=== PATIENT | male | born 1960 | race Caucasian/White ===

== ENCOUNTER 2018-07-21 17:36 | Inpatient (IN) | payer OTHER ==
[2018-07-21] MEDS ORDERED: Diltiazem IV push/loading dose 5 MG/ML 5 ML vial (25 mg) ONE (17:55)
[2018-07-21] MEDS ORDERED: Diltiazem IV push/loading dose 5 MG/ML 5 ML vial (25 mg) IV PUSH ONE (18:09)
--- NOTE | 2018-07-21 18:14 | ED ---
Palpitations / Dysrhythmia - HPI Summary HPI Summary: Pt is a 58 y/o M with no significant PMH,although he doesn't seek regular medical care, presents to the ED with a chief complaint of weakness since this am. He reports these sx first onset last week on 07/14/18, including fatigue, weakness, racing HR, SOB, and nausea. He went to [facility] who found him in rapid afib and referred him to the ED for further evaluation and treatment. He denies chest pain. He presented by private car. Pt was seen immediately upon arrival when noted with HR's 180-200. IV cardizem 20mg given, and drip at 10mg/ hr of cardizem was started with slowing of his HR to 138. Pt remained asymptomatic, except for fatigue and SOB. - History of Current Complaint Chief Complaint: EDWeakness Hx Obtained From: Patient, Other: - Well Now UC Onset/Duration: Sudden Onset, Lasting Hours, Still Present Timing: Intermittent Episodes Lasting: - minutes at a time Severity Initially: Moderate Severity Currently: Moderate Character: Fast Aggravating: Nothing Alleviating: Nothing Associated Signs & Symptoms: Dizzy, Shortness of Breath, Diaphoresis, Nausea - Allergy/Home Medications Allergies/Adverse Reactions: Allergies Allergy/AdvReac Type Severity Reaction Status Date / Time nickel Allergy Hives Verified 07/21/18 18:00 PMH/Surg Hx/FS Hx/Imm Hx Previously Healthy: Yes Endocrine/Hematology History: Denies: Hx Diabetes Cardiovascular History: Denies: Hx Hypertension - Surgical History Surgical History: None Infectious Disease History: No Infectious Disease History: Denies: Traveled Outside the [place] in Last 30 Days - Family History Known Family History: Positive: Other - mother with lung CA Negative: Hypertension, Diabetes - Social History Alcohol Use: Occasionally Alcohol Amount: 3-4 beers- variable Hx Substance Use: No Substance Use Type: Reports: None Hx Tobacco Use: Yes Smoking Status (MU): Light Every Day Tobacco Smoker Review of Systems Positive: Fatigue, Skin Diaphoresis Positive: Palpitations. Negative: Chest Pain Positive: Shortness Of Breath Positive: Nausea Positive: no symptoms reported Musculoskeletal: Negative Skin: Negative Neurological: Negative - dizziness Positive: Weakness Psychological: Normal All Other Systems Reviewed And Are Negative: Yes Physical Exam Triage Information Reviewed: Yes Vital Signs On Initial Exam: Initial Vitals Temp Pulse Resp BP Pulse Ox 97.5 F 93 16 149/104 100 07/21/18 17:42 07/21/18 17:42 07/21/18 17:42 07/21/18 17:42 07/21/18 17:42 Vital Signs Reviewed: Yes Appearance: Positive: No Pain Distress, Well-Nourished, Ill-Appearing Skin: Positive: Warm, Skin Color Reflects Adequate Perfusion, Dry Head/Face: Positive: Normal Head/Face Inspection Eyes: Positive: EOMI, Conjunctiva Clear ENT: Positive: Normal ENT inspection Neck: Positive: Supple, Other: - no JVD Respiratory/Lung Sounds: Positive: Clear to Auscultation, Breath Sounds Present Cardiovascular: Positive: IRR - afib with RVR on monitor and EKG, Tachycardia Abdomen Description: Positive: Nontender, Soft Bowel Sounds: Positive: Present Musculoskeletal: Positive: Strength/ROM Intact, Other - no edema, no calf tenderness Neurological: Positive: Sensory/Motor Intact, Alert, Oriented to Person Place, Time, Facial Symmetry, Speech Normal Psychiatric: Positive: Affect/Mood Appropriate Diagnostics - Vital Signs Vital Signs Temp Pulse Resp BP Pulse Ox 07/21/18 17:42 97.5 F 93 16 149/104 100 - Laboratory Result Diagrams: 07/24/18 06:30 07/25/18 05:20 Lab Statement: Any lab studies that have been ordered have been reviewed, and results considered in the medical decision making process. - Radiology CXR Radiology Interpretation Completed By: ED Physician Summary of Radiographic Findings: Cardiomegaly. Vascular congestion. Pending official radiology report. - EKG 1753 Cardiac Rate: Other Rate - 154bpm EKG Rhythm: Atrial Fibrillation ST Segment: Non-Specific Ectopy: None EKG Comparison: Other - no prior to compare Summary of EKG Findings: An EKG at 1753 reveals atrial fibrillation at 154bpm with nml IV CT, nml QTc, and poor R-wave progression with nonspecific ST-T wave changes. No acute changes. ED MD has reviewed and interpreted this EKG. Re-Evaluation - Re-Evaluation First Eval Re-Evaluation Time: 18:40 Change: Improved Comment: Pt remains without CP. Heart rhythm remains afib, although slowed by cardizem bolus of 10mg to 130's. Cardizem drip initiated at 10mg/hr. Pt agrees to admission. Course/Dx - Course Course Of Treatment: Pt is a 58 y/o M, otherwise well, who does not see a PCP, presents to the ED with a chief complaint of weakness. He reports these sx first onset last week on 07/14/18, including fatigue, dizziness, weakness, racing HR, SOB, and nausea. He went to [facility] who noted rapid afib and referred for further evaluation. Pt arrived by private car, ambulated to triage room, was found with HR 180's-200's, and pt was brought immediately to a room, with all emergency equipment in place. Pt given 20mg cardizem bolus with decrease in rate of afib, and cardizem drip was initiated. Pt had only SOB and fatigue, no chest pain. An EKG at 1753 reveals atrial fibrillation at 154bpm with nml IV CT, nml QTc, and poor R-wave progression with nonspecific ST-T wave changes. No acute changes. There are no prior EKG's for comparison. ED MD has reviewed and interpreted this EKG. Pts hematology shows WBC of 12.6, RBC of 3.61, Hgb of 12.2, Hct of 36, MCV of 100, and MCH of 34. His INR is 1.57. His chemistry shows a CO2 level of 15, Anion gap of 13, BUN of 45, Creatinine of 1.91, BUN/Creatinine ratio of 23.6, AST of 187, and ALT of 248, troponin of 1.59. CXR shows cardiomegaly with vascular congestion, pending official radiology report. He has been accepted to [facility] with dx of atrial fibrillation with RVR new onset under Dr. Jesus as of 1845. - Diagnoses Differential Diagnosis/HQI/PQRI: Positive: Cardiomyopathy, Congestive Heart Failure, Coronary Artery Disease, Pulmonary Embolism Provider Diagnoses: Atrial fibrillation with RVR, AURA (acute kidney injury), Transaminitis, Elevated troponin level - Critical Care Time Critical Care Time: 30-74 min - 30 mins Discharge - Sign-Out/Discharge Documenting (check all that apply): Patient Departure - Discharge Plan Condition: Good Disposition: ADMITTED TO [facility] - Billing Disposition and Condition Condition: GOOD Disposition: Admitted to [facility] - Attestation Statements Document Initiated by Scribe: Yes Documenting Scribe: Lisbeth Diehl Provider For Whom Scribe is Documenting (Include Credential): Dr. Sarah Denise MD. Scribe Attestation: I, Lisbeth Diehl, scribed for Dr. Sarah Denise MD. on 07/29/18 at 0146. Scribe Documentation Reviewed: Yes Provider Attestation: The documentation as recorded by the joseibe, Lisbeth Diehl accurately reflects the service I personally performed and the decisions made by me, Dr. Sarah Denise MD. Status of Scribe Document: Viewed Consult Consult: [id number] - I spoke with Dr Jesus who will be accepting the pt to [facility] with a dx of atrial fibrillation with RVR, new onset.
[2018-07-21 18:21] LABS: ABS Lymphocytes 1.2 10^3/ul (1.0-4.8); ABS Monocytes 0.6 10^3/ul (0-0.8); ABS Neutrophils 10.8 10^3/ul (1.5-7.7); Hematocrit 36 % (42-52); Hemoglobin 12.2 g/dL (14.0-18.0); Lymphocyte % 9.5 %; Mean Corpuscular HGB Conc 34 g/dL (31-36); Mean Corpuscular Hemoglobin 34 pg (27-31); Mean Corpuscular Volume 100 fL (80-94); Nucleated Red Blood Cells % 0.1; Platelet Count 157 10^3/uL (150-450); Red Blood Count 3.61 10^6 /uL (4.18-5.48); Red Cell Distribution Width 14 % (10.5-15); White Blood Count 12.6 10^3/uL (3.5-10.8)
[2018-07-21 18:31] LABS: INR 1.57 (0.82-1.09)
[2018-07-21 18:40] LABS: ALT 248 U/L (7-52); AST 187 U/L (13-39); Albumin 3.8 g/dL (3.2-5.2); Albumin/Globulin Ratio 1.3 (1-3); Alkaline Phosphatase 88 U/L (34-104); Anion Gap 13 mmol/L (2-11); BUN/Creatinine Ratio 23.6 (8-20); Blood Urea Nitrogen 45 mg/dL (6-24); CO2 Carbon Dioxide 15 mmol/L (22-32); Chloride 110 mmol/L (101-111); EGFR African American 44.3 (>60); EGFR Non-African American 36.6 (>60); Glucose 142 mg/dL (70-100); Potassium 4.4 mmol/L (3.5-5.0); Sodium 138 mmol/L (135-145); Total Protein 6.8 g/dL (6.4-8.9)
[2018-07-21] MEDS: Diltiazem IV VIAL* 125 MG in NS 0.9% 100 ML* 100 ML IVPB ONE ×2 (18:42→18:58)
[2018-07-21 19:03] LABS: Troponin I 1.59 ng/mL (<0.04)
[2018-07-21 19:16] LABS: Creatine Kinase 93 U/L (10-223); Magnesium 1.6 mg/dL (1.9-2.7)
[2018-07-21 19:20] LABS: CKMB ng/mL 18.8 ng/mL (0.6-6.3)
[2018-07-21 19:27] LABS: T4, Total 7.66 mcg/dL (6.09-12.23)
[2018-07-21 19:31] LABS: TSH (Thyroid Stimulating Horm) 2.88 mcIU/mL (0.34-5.60)
[2018-07-21] MEDS ORDERED: Magnesium Sulfate IV* 3 GM in NS 0.9% 100 ML* 100 ML IVPB ONE (19:31)
[2018-07-21] MEDS ORDERED: Furosemide IV* 10 MG/ML 10 ML VIAL (100 MG) IV ONE (19:45)
[2018-07-21] MEDS ORDERED: Nitro 2% OINT* (Nitroglycerin) 1 INCH/PAK PAK TOPICAL ONE (19:45)
[2018-07-21] MEDS ORDERED: Acetaminophen TAB* 325 MG PO PRN (19:46)
[2018-07-21] MEDS ORDERED: Aspirin 81 mg CHEW TAB* 81 MG TAB.CHEW PO ONE (19:49)
[2018-07-21] MEDS ORDERED: Ondansetron INJ* 2 MG/ML VIAL IV PRN (19:56)
[2018-07-21] MEDS ORDERED: Senna TAB PO PRN (19:56)
[2018-07-21] MEDS ORDERED: Al Hydrox/Mg Hydrox/Simet LIQ* 30 ML UDC PO PRN (19:56)
[2018-07-21] MEDS ORDERED: Docusate CAP* 100 MG PO PRN (19:56)
[2018-07-21] MEDS ORDERED: LORazepam INJ* 2 MG/ML 1 ML VIAL IV PUSH SCH (20:00)
[2018-07-21] MEDS ORDERED: Heparin DRIP 25,000 UNITS(*) 25,000 UNITS/500 ML BAG IV SCH (20:00)
[2018-07-21 20:19] LABS: Alcohol < 10 mg/dL (<10)
[2018-07-21 20:36] LABS: Folate > 20.00 ng/mL (>3.99)
[2018-07-21] MEDS ORDERED: Lorazepam PYXIS KEY PRN (20:36)
[2018-07-21] MEDS: Nicotine PATCH 14 MG/24 HR* PATCH TRANSDERM SCH (21:30)
[2018-07-21] MEDS: Heparin VIAL(*) 5000 UNITS/ML VIAL (FIVE THOUSAND) IV PRN (21:30)
[2018-07-21 21:33] LABS: Hepatitis B Surface Antigen Negative (Negative)
[2018-07-21 21:38] LABS: Troponin I 1.89 ng/mL (<0.04)
[2018-07-21] MEDS ORDERED: Digoxin IV* 0.5 MG/2 ML AMP (0.25 MG/ML) IV SLOW PU ONE (21:41)
--- NOTE | 2018-07-21 21:43 | HP ---
HISTORY AND PHYSICAL: DATE OF ADMISSION: 07/21/18 TIME OF EVALUATION: 1929 PRIMARY CARE PHYSICIAN: The patient does not have a primary care physician. CHIEF COMPLAINT: Shortness of breath. HISTORY OF PRESENT ILLNESS: This is a 58-year-old male with an unremarkable past medical history, though he does not follow up with a primary care physician , who is complaining about a week of shortness of breath. He was concerned because he was not getting better. He got up and had no energy today, so he went to [facility]. At [facility], they did an EKG that showed him in rapid AFib and they sent him to the emergency room for further evaluation. The patient states he was otherwise feeling well, has no recent viral illness. No fevers, no cough. He denies any chest pain. No neck pain. No back pain. He states last week, he was [place] at a concert. He could not through it because he was so short of breath. Denies any changes in his weight. No lower extremity swelling. He denies any nausea, vomiting, diarrhea, no abdominal pain. He states too during this time, he will have episodes of what he felt palpitations and he will start sweating, but no associated chest pain. Denies any urinary symptoms, but has noticed it has been more dark over the past few days. He has taken Advil a few times over the course of the past few days. Otherwise, remaining review of systems negative. In the emergency room, the patient had labs and imaging, he was found to be in rapid AFib. He was given a diltiazem bolus and started on a drip at 10 mg an hour. Currently, chest pain free. He states he feels fine currently. PAST MEDICAL HISTORY: Unremarkable. The patient does not see a primary care physician. MEDICATIONS: None. ALLERGIES: Allergies to NICKEL. FAMILY HISTORY: Mother at age 65 from lung cancer. Father unknown cause of . Brother is alive and healthy. SOCIAL HISTORY: Lives at home with his , who is his healthcare proxy. 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 He is very active. He admits to smoking half pack per day x30 years. He drinks about 3 to 4 drinks nearly daily, but states not every day. No illicit drug use. Code status, full code. REVIEW OF SYSTEMS: A 14-point review of systems as mentioned in the HPI, otherwise negative. PHYSICAL EXAMINATION GENERAL: In no acute distress. Resting comfortably in bed with his at the bedside. VITAL SIGNS: Temp is 97.5, pulse rate is 130, respiratory rate 23, oxygen saturation 97% on room air, blood pressure 131/107. HEENT: Head: Normocephalic. Pupils are equal and reactive and anicteric. Oropharynx: Mucous membranes are moist. NECK: Supple. No lymphadenopathy. RESPIRATORY: Diminished breath sounds, bibasilar rales. No increased work of breathing. CARDIAC: Tachycardia, irregular rate and rhythm. Soft systolic murmur heard throughout. ABDOMEN: Morbidly obese, soft, nontender, nondistended. EXTREMITIES: Trace pedal edema. +2 DPs. NEUROLOGIC: Alert and oriented x3. No gross focal neurologic deficits. DIAGNOSTIC STUDIES/LAB DATA: White count 12.6, hemoglobin 12.2, hematocrit 36 , platelets 157. INR is 1.57. Sodium 138, potassium 4.4, chloride 110, bicarb 15, BUN 45, creatinine 1.91, glucose 142, magnesium 1.6. AST 187, ALT is 48. Troponin is 1.59. CK-MB is 18.8. BNP is 813. TSH is 2.88. Radiographic data shows rapid atrial fibrillation of a rate of [address] depression in lateral leads. Chest x-ray shows findings consistent with congestive heart failure. ASSESSMENT AND PLAN: This is a 58-year-old male who has not been followed by a primary care physician on a routine basis, who presents to the emergency room with a week of shortness of breath and palpitations, found to be in rapid atrial fibrillation. 1. Rapid atrial fibrillation. Assessment: Etiology behind his rapid atrial fibrillation could be related to his alcohol and smoking use, also concern for ischemia with an elevated troponin. . The patient does not have any chest pain. He does have ST depression. He also has a component of acute decompensated heart failure likely driven by his rapid atrial fibrillation. Also possibility is a pulmonary embolism. Plan: We will admit the patient to the ICU. We will continue him on the diltiazem drip. We will give him a dose of Lasix, Nitro paste, give him a full aspirin, trend his troponin, check a lipid panel, check a hemoglobin A1c, and start him on heparin drip. We will do a protocol for a pulmonary embolus until pulmonary embolus can be ruled out and order a V/Q scan in the morning in the setting of his renal failure. We will obtain an echocardiogram. We will keep him NPO after midnight. Spoke with Dr. Jc. Cardiology will see him in the morning. They may want to cardiovert him as well. 2. Acute kidney injury. I suspect this in the setting of his acute decompensated heart failure. He did take a few doses of Advil. Plan: We will renally dose his medications. We will check a FENa and monitor his renal function in the morning. 3. Transaminitis. The patient with elevated LFTs. Also likely related to acute decompensated heart failure. Plan: We will repeat his labs in the morning and check an acute hepatitis panel. 4. Low salt diet and NPO after midnight for possible EMELINA with cardioversion. 5. DVT prophylaxis. The patient scores moderate risk. We will place him on heparin drip. 6. Code status: Full code. PATIENT TIME: Greater than 50 minutes was spent doing the history and physical , more than half the time was direct patient contact and critical care time. [id number]/[facility] #: [id number] TOMASZ
[2018-07-21 21:50] LABS: Hepatitis C Antibody Negative (Negative)
[2018-07-22 00:03] LABS: Urine Appearance Cloudy; Urine Bilirubin Negative (Negative); Urine Blood Negative (Negative); Urine Color Straw; Urine Glucose Negative (Negative); Urine Ketones Negative (Negative); Urine Nitrite Negative (Negative); Urine Protein Negative (Negative); Urine Specific Gravity 1.006 (1.010-1.030); Urine Urobilinogen Negative (Negative)
[2018-07-22 00:20] LABS: Urine Creatinine Concentration 28.16 mg/dL
[2018-07-22 00:27] LABS: Troponin I 1.74 ng/mL (<0.04)
[2018-07-22] MEDS ORDERED: Metoprolol Tartrate IV* 1 MG/ML 5 ML VIAL IV ONE (00:31)
[2018-07-22] MEDS: Diltiazem IV VIAL* 125 MG in NS 0.9% 100 ML* 100 ML IVPB SCH ×2 (03:12→14:46)
[2018-07-22 04:51] LABS: ABS Basophils 0.1 10^3/ul (0-0.2); ABS Eosinophils 0.1 10^3/ul (0-0.6); ABS Lymphocytes 2.9 10^3/ul (1.0-4.8); ABS Monocytes 0.4 10^3/ul (0-0.8); ABS Neutrophils 5.9 10^3/ul (1.5-7.7); Eosinophil % 0.7 %; Hematocrit 34 % (42-52); Hemoglobin 11.5 g/dL (14.0-18.0); Lymphocyte % 31.2 %; Mean Corpuscular HGB Conc 34 g/dL (31-36); Mean Corpuscular Hemoglobin 34 pg (27-31); Mean Corpuscular Volume 101 fL (80-94); Mean Platelet Volume 9.5 fL (7.4-10.4); Platelet Count 150 10^3/uL (150-450); Red Blood Count 3.36 10^6 /uL (4.18-5.48); Red Cell Distribution Width 14 % (10.5-15); White Blood Count 9.3 10^3/uL (3.5-10.8)
[2018-07-22 04:58] LABS: INR 1.5 (0.82-1.09)
[2018-07-22 05:06] LABS: Albumin 3.6 g/dL (3.2-5.2); Albumin/Globulin Ratio 1.2 (1-3); EGFR African American 58.6 (>60); EGFR Non-African American 48.4 (>60); Globulin 2.9 g/dL (2-4); HDL Cholesterol 27.5 mg/dL; Potassium 3.7 mmol/L (3.5-5.0); Total Bilirubin 0.6 mg/dL (0.2-1.0); Total Protein 6.5 g/dL (6.4-8.9)
[2018-07-22] MEDS ORDERED: Nicotine Patch Removal NOTE PATCH OFF ONE (06:00)
[2018-07-22] MEDS ORDERED: Perflutren Lipid Microsphere* 3 ML VIAL ONE (08:31)
[2018-07-22] MEDS ORDERED: Furosemide IV* 10 MG/ML VIAL (40 MG) IV SCH (09:00)
[2018-07-22] MEDS: Multivitamins/Minerals TAB PO SCH (09:20)
[2018-07-22] MEDS: Nicotine PATCH 14 MG/24 HR* PATCH TRANSDERM SCH (09:21)
[2018-07-22] MEDS: Potassium Chlor TAB* 20 MEQ TAB.ER PO SCH (09:21)
[2018-07-22] MEDS: Folic Acid TAB* 1 MG PO SCH (09:21)
[2018-07-22] MEDS: Thiamine TAB* 100 MG TAB PO SCH (09:21)
[2018-07-22] MEDS: Aspirin 81 mg CHEW TAB* 81 MG TAB.CHEW PO SCH (09:21)
--- NOTE | 2018-07-22 10:40 | ECHO ---
*[facility]* [place] [address] Fax #: [phone] Transthoracic Echocardiogram Patient: Torrie Height: 72 in / Don Bose 182.9 cm : 1960 Weight: 259.5 lb / Study Date: 07/22/2018 117.9 kg Age: 58 BP: 126 / 104 Gender: M BMI/BSA: 35.3 kg/m^2 HR: 134 bpm / 2.38 m^2 *Dry Wall Installer: * Shaila Womack RDCS RN *Referring Physician: * Lisbeth Crowley *Reading Physician: * Kasandra Barnard MD Indications: Congestive Heart Failure. History: Risk factors: Former tobacco use. Obese. ETOH use. Conclusions Summary: 1. Left ventricle: The cavity size is mildly dilated. Wall thickness is mildly increased. Systolic function is severely reduced. The estimated ejection fraction is 15-20%. Doppler parameters are consistent with restrictive physiology, indicative of decreased left ventricular diastolic compliance and/or increased left atrial pressure. 2. Right ventricle: Systolic function is moderately reduced. 3. Left atrium: The atrium is severely dilated. 4. Mitral valve: There is mild regurgitation, directed anteriorly and toward the free wall. 5. Tricuspid valve: There is trace to mild regurgitation. 6. Pulmonary arteries: The peak pressure during systole by Doppler is 31.0 mm Hg. 7. No prior echocardiogram to compare. Study data: Transthoracic echocardiogram. Procedure: Transthoracic echocardiography was performed. The study was technically limited due to body habitus and smoking history. A total of 4 ml of Definity was given IV. Image enhancement administered by Dayna Ovalles RN. Complete 2D, spectral Doppler, and color flow Doppler. Patient status: Inpatient. Patient room number: ICU 8. Rhythm: Atrial flutter. Findings Left ventricle: The cavity size is mildly dilated. Wall thickness is mildly increased. Systolic function is severely reduced. The estimated ejection fraction is 15-20%. Severe diffuse hypokinesis. Doppler parameters are consistent with restrictive physiology, indicative of decreased left ventricular diastolic compliance and/or increased left atrial pressure. Right ventricle: The cavity size is mildly dilated. Systolic function is moderately reduced. Left atrium: The atrium is severely dilated. Right atrium: The atrium is moderately dilated. Mitral valve: The leaflets are mildly thickened. There is no evidence of stenosis. There is mild regurgitation, directed anteriorly and toward the free wall. Aortic valve: The valve is trileaflet. The leaflets are mildly thickened. There is no evidence of stenosis. There is no regurgitation. Tricuspid valve: The leaflets are normal thickness. There is no evidence of stenosis. There is trace to mild regurgitation. Pulmonic valve: The leaflets are normal thickness. There is no evidence of stenosis. There is trace regurgitation. Aorta: Aortic root: The aortic root is not dilated. Ascending aorta: The ascending aorta is not dilated. Aortic arch: The aortic arch is not dilated. Pericardium: There is no pericardial effusion. Pulmonary arteries: The main pulmonary artery is normal-sized. Systemic veins: Inferior vena cava: The vessel is dilated. The respirophasic diameter changes are blunted (< 50%). Measurements Left ventricle Value Ref Aortic valve Value Ref EMILY, LAX (H) 5.9 cm 4.2 - Choco diam, ED 2.3 cm ----- 5.8 Peak v, S 0.79 m/sec ----- ESD, LAX (H) 5.7 cm 2.5 - VTI, S 10.3 cm ----- 4.0 Mean grad, S 1.0 mm Hg ----- FS, LAX (L) 4 % 25 - 43 Peak grad, S 2.0 mm Hg ----- PW, ED, LAX (H) 1.2 cm 0.6 - LVOT/AV, VTI ratio 0.98 ----- 1.0 IVS/PW, ED 0.98 -------- Mitral valve Value Ref E', lat choco, TDI (L) 8.4 cm/sec >=10.0 Peak E 1.11 m/sec --- -- E/e', lat choco, TDI 13 -------- Decel time 109 ms ----- E', med choco, TDI (L) 5.8 cm/sec >=7.0 Peak grad, D 4.9 mm Hg --- -- E/e', med choco, TDI 19 -------- E', avg, TDI 7.1 cm/sec -------- Pulmonic valve Value Ref E/e', avg, TDI (H) 16 <=14 Peak v, S 0.77 m/sec --- -- Peak grad, S 2.0 mm Hg ----- LVOT Value Ref Peak margarito, S 0.74 m/sec -------- Tricuspid valve Value Ref VTI, S 10.1 cm -------- TR peak v 2.1 m/sec <=2.8 Mean grad, S 1 mm Hg -------- Peak RV-RA grad, S 18 mm Hg ----- Ventricular septum Value Ref Aortic root Value Ref IVS, ED (H) 1.1 cm 0.6 - Root diam 3.0 cm <4.4 1.0 Ascending aorta Value Ref Right ventricle Value Ref AAo AP diam, S 3.3 cm ----- EMILY, LAX 2.9 cm -------- EMILY minor ax, A4C (H) 4.2 cm 1.9 - Aortic arch Value Ref mid 3.5 Arch diam 2.9 cm ----- Pressure, S 33 mm Hg -------- Decending aorta Value Ref Left atrium Value Ref Sheila peak margarito 0.48 m/sec ----- ML dim, A4C 6.0 cm -------- SI dim, A4C 7.1 cm -------- Pulmonary artery Value Ref Vol/bsa, ES, 1-p (H) 59 ml/m^2 12 - 37 Pressure, S 31.0 mm Hg ----- A4C Vol/bsa, ES, A/L (H) 59 ml/m^2 16 - 34 Inferior vena cava Value Ref Diam 2.5 cm ----- Right atrium Value Ref ML dim, ES, A4C (H) 5.6 cm 2.6 - 4.4 SI dim, ES, A4C (H) 6.4 cm 3.4 - 5.3 Estimated RAP 15 mm Hg -------- Legend: (L) and (H) stella values outside specified reference range. Prepared and electronically signed by Kasandra Barnard MD 07/22/2018 10:40
[2018-07-22] MEDS ORDERED: Naloxone* 0.4 MG/ML 1 ML VIAL ONE (13:01)
[2018-07-22] MEDS ORDERED: Flumazenil* 0.1 MG/ML 5 ML MDV ONE (13:01)
[2018-07-22] MEDS ORDERED: Midazolam* 1 MG/ML 5 ML VIAL (5 MG) ONE (13:01)
[2018-07-22] MEDS ORDERED: fentaNYL* 50 MCG/ML 2 ML VIAL (100 MCG VIAL) ONE (13:01)
[2018-07-22] MEDS ORDERED: Lidocaine 2% VISCOUS* 15 ML UDC ONE (13:02)
[2018-07-22] MEDS ORDERED: Diltiazem IV VIAL* 125 MG in NS 0.9% 100 ML* 100 ML IVPB SCH (14:00)
--- NOTE | 2018-07-22 15:04 | TEE ---
*[facility]* [place] [address] Fax #: [phone] Transesophageal Echocardiogram Patient: Torrie Height: 72 in / 183 Don Bose cm : 1960 Weight: 261.8 lb / Study Date: 07/22/2018 119 kg Age: 58 BP: 131 / 108 Gender: M BMI/BSA: 35.5 kg/m^2 HR: 135 bpm / 2.5 m^2 *Live Ammunition Inspector: * Irene Jay [facility] *Referring Physician: * Kasandra Barnard MD *Reading Physician: * Kasandra Barnard MD Indications: Atrial Flutter. History: Risk factors: Former tobacco use. Conclusions Summary: 1. Left ventricle: Systolic function is severely reduced. The estimated ejection fraction is 15-20%. Global hypokinesis, minor variation. 2. Right ventricle: Systolic function is moderately reduced. 3. Left atrium: The atrium is severely dilated. There is no evidence of a thrombus in the atrial cavity or appendage. There is spontaneous echo contrast ("smoke"). 4. Atrial septum: A PFO is demonstrated by color Doppler, with left to right shunting. 5. Mitral valve: There is mild regurgitation. Recommendations: Cardioversion performed, see seperate report. Study data: Diagnostic Transesophageal Echocardiogram Consent: The risks and benefits of the procedure, including alternatives were discussed with the patient and/or their health care premium representative and written informed consent was obtained. Procedure: Initial setup: The patient was brought to the laboratory in the fasting state.Intravenous access was obtained. Surface ECG leads, heart rate, heart rhythm, blood pressure measurements, pulse oximetric signals, and mainstream end-tidal CO2 tracings were monitored throughout the procedure. Sedation. Moderate sedation was administered by nursing staff. History and physical as well as labs were reviewed. An oral bite block was inserted for protection of oral dentition. The patient was placed in the left lateral decubitus position. Topical anesthesia was obtained using viscous lidocaine. A transesophageal probe was inserted by the attending funds development director. Transesophageal echocardiography was performed, image quality was good, and all standard views were attempted within the limitations of patient tolerance and safety. Multiple 2D, color flow Doppler and spectral Doppler images were obtained. The transesophageal probe was removed. A bubble study was performed. Image 46. Location: ICU Patient status: Inpatient. Patient room number: 8. Study completion: The patient tolerated the procedure well. There were no complications. Administered medications: Midazolam, 8mg. Fentanyl, 75mcg. Rhythm: Atrial flutter. Findings Left ventricle: The cavity size is mildly dilated. Systolic function is severely reduced. The estimated ejection fraction is 15-20%. Global hypokinesis, minor variation. Right ventricle: The cavity size is mildly dilated. Systolic function is moderately reduced. Left atrium: The atrium is severely dilated. Emptying velocity is normal. There is no evidence of a thrombus in the atrial cavity or appendage. There is spontaneous echo contrast ("smoke"). Right atrium: The atrium is moderately dilated. Atrial septum: A PFO is demonstrated by color Doppler, with left to right shunting. Mitral valve: The leaflets are normal thickness. There is no evidence of stenosis. There is mild regurgitation. Aortic valve: The valve is trileaflet. The leaflets are normal thickness. There is no evidence of stenosis. There is no significant regurgitation. Tricuspid valve: The leaflets are normal thickness. There is no evidence of stenosis. There is trivial regurgitation. Pulmonic valve: Not well visualized. The leaflets are not thickened. There is no significant regurgitation. Aorta: Aortic root: The aortic root is appears normal. Ascending aorta: The ascending aorta is upper normal in size. Pericardium: There is no significant pericardial effusion. Pulmonary arteries: The main pulmonary artery is normal-sized. Systemic veins: Inferior vena cava: The vessel is normal in size. Superior vena cava: The vessel is appears normal. Pulmonary veins: The flow of the pulmonary veins appears normal. Measurements Aortic valve Value 07/22/2018 Ref Aortic root Value 07/22/2018 Ref Twyla diam, ED 2.3 cm 2.3 ---- Root diam 3.0 cm 3.0 <4.5 Mitral valve Value 07/22/2018 Ref Ascending aorta Value 07/22/2018 Ref Peak E 0.81 m/sec 1.11 ---- AAo AP diam, S 3.5 cm 3.3 ---- Peak A 0.02 m/sec ---- Decel time 49 ms 109 ---- Peak grad, D 2.6 mm Hg 4.9 ---- Peak E/A ratio 38.6 ---- Legend: (L) and (H) stella values outside specified reference range. Prepared and electronically signed by Kasandra Barnard MD 07/22/2018 15:03
[2018-07-22] MEDS: Heparin DRIP 25,000 UNITS(*) 25,000 UNITS/500 ML BAG IV SCH (15:43)
--- NOTE | 2018-07-22 16:09 | PN ---
Subjective Date of Service: 07/22/18 Interval History: HOSPITALIST PROGRESS NOTE Patient seen and examined at bedside. Care reviewed and d/w Irene Peterson RN. He feels a little better today. Denies CP and dyspnea, but did not get out of bed yet. Family History: Unchanged from Admission Social History: Unchanged from Admission Past Medical History: Unchanged from Admission Objective Active Medications: Acetaminophen (Tylenol Tab*) 650 mg PO Q4H PRN PRN Reason: PAIN Al Hydrox/Mg Hydrox/Simethicone (Maalox Plus*) 30 ml PO Q6H PRN PRN Reason: INDIGESTION Aspirin (Aspirin 81 Mg Chew Tab*) 81 mg PO DAILY [facility] Last Admin: 07/22/18 09:21 Dose: 81 mg Carvedilol (Coreg Tab*) 3.125 mg PO BID [facility] Docusate Sodium (Colace Cap*) 100 mg PO BID PRN PRN Reason: CONSTIPATION Folic Acid (Folvite Tab*) 1 mg PO DAILY [facility] Last Admin: 07/22/18 09:21 Dose: 1 mg Heparin Sodium (Porcine) (Heparin Vial(*)) 0 units IV .FOR BOLUSES PRN PRN Reason: HEPARIN DRIP BOLUSES Last Admin: 07/21/18 21:30 Dose: 7,050 units Heparin Sodium/Dextrose (Heparin Drip 25,000 Units(*)) 25,000 units in 500 mls @ 0 mls/hr IV PER RATE [facility]; Protocol Last Admin: 07/22/18 15:43 Dose: 24 mls/hr Lorazepam (Ativan Inj*) 0 - 3 mg IV PUSH .PER [facility] PROTOCOL [facility]; Protocol Miscellaneous (Ativan Pyxis Guzman) 1 ea N/A .PYXIS GUZMAN PRN PRN Reason: PER PROTOCOL Multivitamins/Minerals (Theragran/Minerals Tab*) 1 tab PO DAILY [facility] Last Admin: 07/22/18 09:20 Dose: 1 tab Nicotine (Nicotine Patch 14 Mg/24 Hr*) 1 patch TRANSDERM DAILY [facility] Last Admin: 07/22/18 09:21 Dose: Not Given Ondansetron HCl (Zofran Inj*) 4 mg IV Q4H PRN PRN Reason: NAUSEA/VOMITING Pharmacy Profile Note (Nicotine Patch Removal Note*) 1 note PATCH OFF 2100 [facility] Potassium Chloride (Klor Con Er Tab*) 20 meq PO DAILY [facility] Last Admin: 07/22/18 09:21 Dose: 20 meq Ramipril (Altace Cap*) 2.5 mg PO BEDTIME [facility] Senna (Senokot Tab*) 1 tab PO BID PRN PRN Reason: CONSTIPATION Thiamine HCl (Vitamin B-1 Tab*) 100 mg PO DAILY [facility] Last Admin: 07/22/18 09:21 Dose: 100 mg Vital Signs - 8 hr 07/22/18 07/22/18 07/22/18 09:00 09:01 09:36 Temperature Pulse Rate 132 136 134 Respiratory 26 19 24 Rate Blood Pressure 136/105 141/105 (mmHg) O2 Sat by Pulse 98 97 97 Oximetry 07/22/18 07/22/18 07/22/18 10:00 11:21 12:00 Temperature 98 F Pulse Rate 133 137 137 Respiratory 27 21 Rate Blood Pressure 133/104 (mmHg) O2 Sat by Pulse 95 97 97 Oximetry 07/22/18 07/22/18 07/22/18 12:32 13:00 13:42 Temperature Pulse Rate 137 138 139 Respiratory 21 Rate Blood Pressure 144/114 131/108 149/115 (mmHg) O2 Sat by Pulse 97 95 97 Oximetry 07/22/18 07/22/18 07/22/18 13:50 13:55 14:00 Temperature Pulse Rate 137 136 135 Respiratory 21 Rate Blood Pressure 147/111 134/102 121/98 (mmHg) O2 Sat by Pulse 100 94 96 Oximetry 07/22/18 07/22/18 07/22/18 14:05 14:10 14:17 Temperature Pulse Rate 134 136 57 Respiratory Rate Blood Pressure 124/87 119/96 59/44 (mmHg) O2 Sat by Pulse 93 97 95 Oximetry 07/22/18 07/22/18 07/22/18 14:19 14:20 14:25 Temperature Pulse Rate 50 65 69 Respiratory Rate Blood Pressure 106/72 94/67 98/77 (mmHg) O2 Sat by Pulse 97 96 97 Oximetry 07/22/18 07/22/18 07/22/18 14:27 14:31 14:36 Temperature Pulse Rate 64 67 67 Respiratory Rate Blood Pressure 104/81 101/74 99/71 (mmHg) O2 Sat by Pulse 98 97 97 Oximetry 07/22/18 07/22/18 07/22/18 14:40 14:45 14:50 Temperature Pulse Rate 61 65 68 Respiratory Rate Blood Pressure 94/76 97/78 92/74 (mmHg) O2 Sat by Pulse 95 93 92 Oximetry 07/22/18 07/22/18 07/22/18 14:55 15:00 15:05 Temperature Pulse Rate 69 65 58 Respiratory 20 Rate Blood Pressure 88/75 98/74 93/74 (mmHg) O2 Sat by Pulse 96 96 88 Oximetry 07/22/18 07/22/18 07/22/18 15:10 15:17 15:30 Temperature Pulse Rate 66 53 64 Respiratory Rate Blood Pressure 97/70 107/82 102/73 (mmHg) O2 Sat by Pulse 91 98 98 Oximetry 07/22/18 07/22/18 15:46 16:00 Temperature Pulse Rate 67 64 Respiratory 20 14 Rate Blood Pressure 102/66 (mmHg) O2 Sat by Pulse 97 97 Oximetry Oxygen Devices in Use Now: None Appearance: Obese middle aged gentleman lying in bed in NAD. Eyes: No Scleral Icterus Ears/Nose/Mouth/Throat: Mucous Membranes Moist Neck: Trachea Midline Respiratory: Symmetrical Chest Expansion and Respiratory Effort, - - BS+ bilaterally, diminished in bases Cardiovascular: - - Normal S1 and S2, irregularly irregular, tachycardic Abdominal: NL Sounds; No Tenderness; No Distention - obese Extremities: No Edema Neurological: Alert and Oriented x 3, NL Muscle Strength and Tone Result Diagrams: 07/22/18 04:40 07/22/18 04:40 Microbiology and Other Data: Microbiology 07/21/18 21:00 Nasal Screen MRSA (PCR) - Final Nasal Mrsa Not Detected Assess/Plan/Problems-Billing Assessment: Mr Brownlee is a 58yo M with PMH of tobacco abuse, alcohol use, who presented to ED with c/o progressive dyspnea, found to be in Afib RVR. - Patient Problems (1) Atrial fibrillation with RVR Comment: - Cardiology consult requested - plan for probable EMELINA CV today. - Continue Cardizem drip for rate control for now. - Continue Heparin drip. (2) Systolic CHF Comment: - Echo shows EF 15-20%, no mention of wall motion abnormalities. 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 - Will await Cardiology recommendations. - Will likely benefit of ACEI and BB as tolerated. - No signs of fluid overload at this time. (3) Elevated troponin level Comment: - No c/o chest pain, but EKG had diffuse ST-T changes in the setting of rapid Afib. - Troponin elevation can be secondary to Afib RVR, but will need ischemic w/u. - Awaiting Cardiology input. - Continue Aspirin and Heparin drip. (4) AURA (acute kidney injury) Comment: - Likely pre-renal in the setting of poor perfusion secondary to low EF and Afib RVR - improving. (5) Transaminitis Comment: - Likely multifactorial in the setting of alcohol use, systolic CHF with low EF, poor perfusion in the setting of Afib RVR. - US showed hepatosteatosis, no biliary pathology. - Hepatitis serologies are negative. - Continue to monitor. (6) DVT prophylaxis Comment: - Heparin drip. (7) Full code status Status and Disposition: Inpatient.
[2018-07-22] MEDS: Carvedilol TAB* 3.125 MG PO SCH ×2 (16:10→22:34)
--- NOTE | 2018-07-22 18:01 | CONS ---
CC: Hospitalist; Dr. Jose Velasquez CARDIOLOGY CONSULTATION: DATE OF CONSULT: 07/22/18 REASON FOR CONSULT: Atrial flutter. HISTORY OF PRESENT ILLNESS: Mr. Brownlee is a 58-year-old gentleman who does not see doctors frequently, who has overall been healthy. The patient originally reported that he was feeling fine until about 8 days ago he traveled to [place]. He was walking in a mall and acutely felt epigastric discomfort, some fluttering in the heart, got very diaphoretic and pale, but did not seek medical attention and this passed, but for the last week, he has felt weak and not himself and intermittently be aware of fluttering. There was no leg swelling from the drive. He denied any other acute issues. When he presented to the emergency room, he was found in atrial flutter with 2:1 block and a rapid ventricular rate. Echocardiogram this morning showed an ejection fraction of 15% to 20%. The patient denies orthopnea, PND. He originally denied any chest pain, pressure, heaviness. However, in talking with his and additional discussions with the patient, 2 previous events were uncovered. 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 He drove home. 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 She thinks he probably lost consciousness driving home because there was grass all over one side of the car, although the patient denies this. They thought this was probably related to dehydration and heat and he never followed up with a physician. The other event is 3 weeks ago, the patient developed what he thought was indigestion where he had epigastric discomfort, but no diarrhea or vomiting. It passed and he again he did not seek medical attention. The patient drinks regularly 5 to 6 beers about 3 days a week. Review of systems was significant for evidence of significant sleep apnea with snoring and stopping breathing multiple times a night according to the patient's . PAST MEDICAL HISTORY: The patient has a past medical history of possible hypertension. He says this has been high when he has checked it in the past. Otherwise, no documented past medical history. MEDICATIONS: Outpatient medications were none. Inpatient medications included: 1. Digoxin IV push. 2. Diltiazem drip. 3. Tylenol p.r.n. 4. Maalox p.r.n. 5. Aspirin 81 mg a day. 6. Colace. 7. Folic acid. 8. Lasix 40 mg IV push daily. 9. Heparin drip. 10. Lorazepam p.r.n. 11. Magnesium sulfate 3 g x1. 12. Nicotine patches. 13. Thiamine. 14. Senna. 15. Potassium. ALLERGIES: He is allergic to NICKEL. FAMILY HISTORY: The patient's mother at 65 of lung cancer and his father' s history, he does not know. He has a brother, who is healthy. SOCIAL HISTORY: The patient is . Smokes cigarettes. 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 He has been very active. Drinks approximately 5 to 6 beers every 3 days or so. No history of recreational drug use. REVIEW OF SYSTEMS: Positive for feeling weak for 1 week. Positive for epigastric discomfort and what he thought was food poisoning or GI problem 3 weeks ago. Positive for diaphoresis, possible syncope, change in mentation a year ago. Negative for orthopnea, PND, chest pain, pressure, heaviness, neck or arm pain. Negative for decline in functional ability prior to a week ago. Positive for symptoms of sleep apnea. Positive for regular alcohol intake. Negative for change in bowel or bladder habits. Negative for any history of fevers, chills, sweats in the last year. All other 14-point review of systems was negative. PHYSICAL EXAM: The patient is 6 feet, weighs 261 pounds with a BMI of 36. Vital Signs: On arrival to the hospital, the patient's blood pressure was 149/ 104 with a pulse of 138. At 8 this morning, blood pressure 127/99, pulse was 134. General Appearance: Stocky, but also overweight middle-aged gentleman, lying at 30 degrees, appears a little psychologically anxious, but does not appear in medical distress. Psychologically, pleasant and cooperative. Neurologically, awake, alert, and oriented to person, place, and time. Grossly normal sensory and motor function in the upper and lower extremities. Gait not checked. Skin: Warm, dry. No cyanosis or rashes. HEENT: Pupils are equal and round. Mucous membranes moist. Neck without appreciable increased JVP, although thick. Lungs were clear with good effort, but distant. No wheezes, rales, or rhonchi. Coronary: S1, S2, regular. Gallop heard. Abdomen: Overweight. Active bowel sounds. Soft, nontender. No hepatomegaly appreciated. No bruits heard. Extremities were free of edema and warm with palpable posterior tibial pulses and dorsalis pedal pulses. DIAGNOSTIC STUDIES/LAB DATA: The patient's 12-lead ECG on admission 07/21/18 at 6 p.m. consistent with atrial fibrillation with a ventricular rate of 154 beats a minute. A 12-lead ECG from this morning at 0700 consistent with atrial flutter, typical with 2:1 block, Qs in V1 and V2 and ST depression in the lateral leads I, aVL and V3 through V6. The patient's echocardiogram done this morning showed global hypokinesis with an ejection fraction of 15% to 20%, restrictive diastolic filling, severe left atrial enlargement, mild mitral and trace to mild tricuspid regurgitation, normal PA pressure. Labs showed white count on arrival 12.6, this morning 9.3; hemoglobin 11; hematocrit 34; platelets 150. PTT this morning 144. Sodium 141, potassium 3.7 , chloride 110, bicarb 20 improved from 15 on admission, BUN 45, creatinine 1.5 , glucose 93. ALT of 307, AST 228. Troponin #1 1.74, #2 1.89, #3 1.59. BNP of 813. Lipid showed total cholesterol 109, triglycerides 56, LDL cholesterol 70. TSH 2.9, T4 7.7. Urinalysis showed specific gravity 1.006, was negative for protein or ketones. Serum alcohol less than 10. V/Q scan from today was negative for pulmonary embolism. Chest x-ray from 07/21/18 showed cardiomegaly and clear lungs, no pleural effusions. IMPRESSION AND PLAN: In summary, Mr. Brownlee is a 58-year-old gentleman with an 8- day history of feeling intermittent fluttering and feeling weak and not himself, who was found to be alternating between atrial flutter and atrial fibrillation with severely depressed ejection fraction. Mr. Brownlee had an episode he thought was indigestion 3 weeks ago and an episode of change in mentation, possible loss of consciousness and diaphoresis a year ago. For the patient's atrial fibrillation/flutter for uncertain duration, probably at least a week and possibly longer, I have recommended EMELINA-guided cardioversion. The indications, risks, and benefits had been discussed with the patient's . He was amenable to proceeding and this was successful. We will continue heparin drip for now and consider conversion to a NOAC such as Eliquis 5 mg b.i.d. in the near future. Post cardioversion, he was in a junctional rhythm, but currently in a heart rate of 70. As the patient's atrium is enlarged, he is at risk for going back into atrial fibrillation/flutter. The patient likely has sleep apnea by history and I would recommend checking overnight oximeter and as soon as possible arrange for an outpatient sleep test to see if he qualifies for CPAP. I also counseled the patient about the importance of complete avoidance of alcohol for his cardiomyopathy and propensity towards atrial fibrillation and flutter. We can refer him for outpatient electrophysiology consultation for flutter ablation at the least and possibly flutter and fib ablation. I would like to start an antiarrhythmic on this gentleman, but right now with his junctional rhythm, I am going to hold off on starting amiodarone or any other antiarrhythmic. We will see if his sinus node comes back with time and how he does with time. He would not be a candidate for flecainide, propafenone due to his cardiomyopathy. Sotalol and amiodarone both confer risk of additional bradycardia and Tikosyn could potentially be of benefit, but we need to ensure this is optimal medication for him and ensure adequate education to ensure he is not at risk combining with other agents that would prolong the QT interval. For the patient's cardiomyopathy, I am recommending we start Coreg at low dose and advance as heart rate and blood pressure tolerate and even with his elevated BUN and creatinine, I am going to recommend an DOV inhibitor and we will start with low- dose ramipril and he may benefit from more aggressive management in the future and down the road if his ejection fraction does not improve, Entresto may be beneficial to him in the future if his EF does not improve. I am stopping his Lasix due to elevated BUN and creatinine without evidence of significant congestive heart failure now based on echo and CXR. senior care, he may benefit from some low-dose diuretics, in which case I would consider alternating or combining a loop diuretic with Aldactone. The etiology of the cardiomyopathy may well be tachycardic induced, but with elevated troponins, his history of epigastric discomfort and his atherosclerotic risk of smoking, sleep apnea, being overweight, and abnormal ECG post CV, ischemic heart disease would also be in the differential. I have discussed potential cardiac catheterization with Interventional Cardiology, as his BUN and creatinine are elevated now, we will see if these improve now that he is out of fib/flutter, but I think it would be good to perform this prior to discharge if we are able to safely. Although his history is subacute, the fact that his atrium is so dilated and the patient has a restrictive cardiomyopathy, it raises the possibility and concern that the cardiomyopathy has been there longer than a week. If he has had a cardiomyopathy for a very long period of time, then there is a large differential behind his cardiomyopathy. I recommend repeating an echo on Friday, but it could take several weeks or even a couple of months for his cardiomyopathy to improve and therefore alternatively recommend this patient not return to work at this time and be sent home on a ZOLL external defibrillator with close out patient follow up. Thank you for allowing me to assist in this nice gentleman's care. Further recommendations will be made pending his clinical course and response to the above measures. [id number]/[facility] #: [id number] TOMASZ
[2018-07-22] MEDS: Nicotine Patch Removal NOTE PATCH OFF SCH (20:30)
[2018-07-22] MEDS ORDERED: Ramipril CAP* 2.5 MG PO SCH (23:00)
[2018-07-23 05:34] LABS: ABS Eosinophils 0.1 10^3/ul (0-0.6); ABS Lymphocytes 1.9 10^3/ul (1.0-4.8); ABS Monocytes 0.4 10^3/ul (0-0.8); ABS Neutrophils 3.9 10^3/ul (1.5-7.7); Eosinophil % 1.5 %; Hematocrit 34 % (42-52); Hemoglobin 11.5 g/dL (14.0-18.0); Lymphocyte % 30.2 %; Mean Corpuscular HGB Conc 34 g/dL (31-36); Mean Corpuscular Hemoglobin 34 pg (27-31); Mean Corpuscular Volume 101 fL (80-94); Mean Platelet Volume 9.1 fL (7.4-10.4); Nucleated Red Blood Cells % 0.1; Platelet Count 136 10^3/uL (150-450); Red Blood Count 3.37 10^6 /uL (4.18-5.48); Red Cell Distribution Width 14 % (10.5-15); White Blood Count 6.4 10^3/uL (3.5-10.8)
[2018-07-23 05:50] LABS: Albumin 3.5 g/dL (3.2-5.2); Albumin/Globulin Ratio 1.2 (1-3); BUN/Creatinine Ratio 28.4 (8-20); Calcium 8.6 mg/dL (8.6-10.3); EGFR African American 62.9 (>60); Globulin 2.9 g/dL (2-4); Potassium 3.6 mmol/L (3.5-5.0); Total Bilirubin 0.5 mg/dL (0.2-1.0); Total Protein 6.4 g/dL (6.4-8.9)
--- NOTE | 2018-07-23 08:39 | PN ---
Subjective Date of Service: 07/23/18 Interval History: f/u low output systolic HF, atrial flutter maintained sinus rhythm no arrhythmias or significant pauses cr improving, lfts' remain elevated asymptomatic currently, no cp, dyspnea or lightheadedness at rest was drinking 2-3 coors light and not every day, unlikely alcohol contributing significantly Medications Active Medications: Acetaminophen (Tylenol Tab*) 650 mg PO Q4H PRN PRN Reason: PAIN Al Hydrox/Mg Hydrox/Simethicone (Maalox Plus*) 30 ml PO Q6H PRN PRN Reason: INDIGESTION Aspirin (Aspirin 81 Mg Chew Tab*) 81 mg PO DAILY [facility] Last Admin: 07/22/18 09:21 Dose: 81 mg Carvedilol (Coreg Tab*) 6.25 mg PO BID [facility] Docusate Sodium (Colace Cap*) 100 mg PO BID PRN PRN Reason: CONSTIPATION Folic Acid (Folvite Tab*) 1 mg PO DAILY [facility] Last Admin: 07/22/18 09:21 Dose: 1 mg Heparin Sodium (Porcine) (Heparin Vial(*)) 0 units IV .FOR BOLUSES PRN PRN Reason: HEPARIN DRIP BOLUSES Last Admin: 07/21/18 21:30 Dose: 7,050 units Heparin Sodium/Dextrose (Heparin Drip 25,000 Units(*)) 25,000 units in 500 mls @ 0 mls/hr IV PER RATE [facility]; Protocol Last Admin: 07/22/18 15:43 Dose: 24 mls/hr Lorazepam (Ativan Inj*) 0 - 3 mg IV PUSH .PER [facility] PROTOCOL [facility]; Protocol Miscellaneous (Ativan Pyxis Guzman) 1 ea N/A .PYXIS GUZMAN PRN PRN Reason: PER PROTOCOL Multivitamins/Minerals (Theragran/Minerals Tab*) 1 tab PO DAILY [facility] Last Admin: 07/22/18 09:20 Dose: 1 tab Nicotine (Nicotine Patch 14 Mg/24 Hr*) 1 patch TRANSDERM DAILY [facility] Last Admin: 07/22/18 09:21 Dose: Not Given Ondansetron HCl (Zofran Inj*) 4 mg IV Q4H PRN PRN Reason: NAUSEA/VOMITING Pharmacy Profile Note (Nicotine Patch Removal Note*) 1 note PATCH OFF 2100 [facility] Last Admin: 07/22/18 20:30 Dose: Not Given Potassium Chloride (Klor Con Er Tab*) 20 meq PO DAILY [facility] Last Admin: 07/22/18 09:21 Dose: 20 meq Ramipril (Altace Cap*) 5 mg PO BEDTIME [facility] Senna (Senokot Tab*) 1 tab PO BID PRN PRN Reason: CONSTIPATION Thiamine HCl (Vitamin B-1 Tab*) 100 mg PO DAILY [facility] Last Admin: 07/22/18 09:21 Dose: 100 mg Objective Vital Signs: Temp Pulse Resp BP Pulse Ox 98.0 F 71 18 123/81 100 07/23/18 06:50 07/23/18 06:50 07/23/18 08:00 07/23/18 06:50 07/23/18 06:50 Oxygen Devices in Use Now: None Appearance: nad, pleasant Ears/Nose/Mouth/Throat: Clear Oropharnyx, Mucous Membranes Moist Neck: NL Appearance and Movements; NL JVP, Trachea Midline Respiratory: Symmetrical Chest Expansion and Respiratory Effort, Clear to Auscultation Cardiovascular: NL Sounds; No Murmurs; No JVD, RRR, No Edema Abdominal: - - soft, obese Extremities: No Edema Neurological: Alert and Oriented x 3 Laboratory Results: 07/23/18 05:25 07/23/18 05:25 INR (Anticoag Therapy) 1.50 (0.82-1.09) H 07/22/18 04:40 APTT 123.1 seconds (26.0-38.0) H* 07/23/18 03:12 Total Bilirubin 0.50 mg/dL (0.2-1.0) 07/23/18 05:25 AST 253 U/L (13-39) H 07/23/18 05:25 ALT 475 U/L (7-52) H 07/23/18 05:25 Alkaline Phosphatase 85 U/L (34-104) 07/23/18 05:25 CK-MB (CK-2) 18.8 ng/mL (0.6-6.3) H 07/21/18 18:25 B-Natriuretic Peptide 813 pg/mL (<=100) H 07/21/18 18:25 Total Protein 6.4 g/dL (6.4-8.9) 07/23/18 05:25 Albumin 3.5 g/dL (3.2-5.2) 07/23/18 05:25 Globulin 2.9 g/dL (2-4) 07/23/18 05:25 Albumin/Globulin Ratio 1.2 (1-3) 07/23/18 05:25 Triglycerides 56 mg/dL 07/22/18 04:40 Cholesterol 109 mg/dL 07/22/18 04:40 LDL Cholesterol 70 mg/dL 07/22/18 04:40 HDL Cholesterol 27.5 mg/dL 07/22/18 04:40 TSH 2.88 mcIU/mL (0.34-5.60) 07/21/18 18:25 07/21/18 07/21/18 07/21/18 18:13 21:05 23:50 Troponin I 1.59 H* 1.89 H* 1.74 H* EKG Data: ekg 07/21/2018 rate variable probable atrial flutter, rate uncontrolled ekg 07/22/18: typical atrial flutter 2:1 135 bpm ekg 07/23/2018 NSr 60 bpm, ivcd, diffuse repolarization abnormalities Assessment/Plan 1. Low output systolic HF - Improved - Suspect large component tachycardia induced 2. Rapid atrial flutter - s/p cardioversion - Atrial fibrillation as well - Not on amiodarone due to post-conversion junctional rhythm (s/p multiple rate control agents) 3. Obesity 4. AURA and Ischemic/congestive hepatopathy - Improved 5. Elevated troponin - significant - ? underlying CAD in addition to #2 contributing to heart failure. 6. Tobacco use - continue aspirin - continue heparin gtt for now - Increase coreg to 6.25 mg po bid (ordered) - Increase ramipril from 2.5 to 5 mg po daily (ordered) - Suspect prior undiagnosed HTN - Not currently requiring a diuretic - May benefit (pending clinical course and below) from outpatient atrial flutter ablation and continued medical management of atrial fibrillation - Plan for CMP, BNP, troponin, EKG and limited echo tomorrow Friday07/24/2018. Given degree of his troponin elevation, EKG findings and presentation, diagnostic coronary angiogram +/- revascularization recommended prior to discharge. Discussed with Dr. Sullivan. - Will follow Thank you for allowing me to participate in the cardiovascular care of this patient. Please do not hesitate to contact me with questions or concerns.
[2018-07-23] MEDS: Nicotine PATCH 14 MG/24 HR* PATCH TRANSDERM SCH (09:25)
[2018-07-23] MEDS: Folic Acid TAB* 1 MG PO SCH (09:26)
[2018-07-23] MEDS: Potassium Chlor TAB* 20 MEQ TAB.ER PO SCH (09:27)
[2018-07-23] MEDS: Thiamine TAB* 100 MG TAB PO SCH (09:27)
[2018-07-23] MEDS: Multivitamins/Minerals TAB PO SCH (09:27)
[2018-07-23] MEDS: Carvedilol TAB* 6.25 MG PO SCH ×2 (09:27→19:50)
[2018-07-23] MEDS: Aspirin 81 mg CHEW TAB* 81 MG TAB.CHEW PO SCH (09:27)
[2018-07-23 09:46] LABS: ABS Eosinophils 0.1 10^3/ul (0-0.6); ABS Lymphocytes 1.6 10^3/ul (1.0-4.8); ABS Monocytes 0.4 10^3/ul (0-0.8); ABS Neutrophils 4.7 10^3/ul (1.5-7.7); Eosinophil % 1.7 %; Hematocrit 35 % (42-52); Hemoglobin 11.8 g/dL (14.0-18.0); Lymphocyte % 23.2 %; Mean Corpuscular HGB Conc 34 g/dL (31-36); Mean Corpuscular Hemoglobin 34 pg (27-31); Mean Corpuscular Volume 100 fL (80-94); Mean Platelet Volume 9.6 fL (7.4-10.4); Nucleated Red Blood Cells % 0.1; Platelet Count 150 10^3/uL (150-450); Red Blood Count 3.46 10^6 /uL (4.18-5.48); Red Cell Distribution Width 14 % (10.5-15); White Blood Count 6.7 10^3/uL (3.5-10.8)
--- NOTE | 2018-07-23 11:24 | PN ---
Subjective Date of Service: 07/23/18 Interval History: Pt feels well, denies SOB, palpitations, CP Family History: Unchanged from Admission Social History: Unchanged from Admission Past Medical History: Unchanged from Admission Objective Active Medications: Acetaminophen (Tylenol Tab*) 650 mg PO Q4H PRN PRN Reason: PAIN Al Hydrox/Mg Hydrox/Simethicone (Maalox Plus*) 30 ml PO Q6H PRN PRN Reason: INDIGESTION Aspirin (Aspirin 81 Mg Chew Tab*) 81 mg PO DAILY [facility] Last Admin: 07/23/18 09:27 Dose: 81 mg Carvedilol (Coreg Tab*) 6.25 mg PO BID [facility] Last Admin: 07/23/18 09:27 Dose: 6.25 mg Docusate Sodium (Colace Cap*) 100 mg PO BID PRN PRN Reason: CONSTIPATION Folic Acid (Folvite Tab*) 1 mg PO DAILY [facility] Last Admin: 07/23/18 09:26 Dose: 1 mg Heparin Sodium (Porcine) (Heparin Vial(*)) 0 units IV .FOR BOLUSES PRN PRN Reason: HEPARIN DRIP BOLUSES Last Admin: 07/21/18 21:30 Dose: 7,050 units Heparin Sodium/Dextrose (Heparin Drip 25,000 Units(*)) 25,000 units in 500 mls @ 0 mls/hr IV PER RATE [facility]; Protocol Last Admin: 07/22/18 15:43 Dose: 24 mls/hr Lorazepam (Ativan Inj*) 0 - 3 mg IV PUSH .PER [facility] PROTOCOL [facility]; Protocol Miscellaneous (Ativan Pyxis Guzman) 1 ea N/A .PYXIS GUZMAN PRN PRN Reason: PER PROTOCOL Multivitamins/Minerals (Theragran/Minerals Tab*) 1 tab PO DAILY [facility] Last Admin: 07/23/18 09:27 Dose: 1 tab Nicotine (Nicotine Patch 14 Mg/24 Hr*) 1 patch TRANSDERM DAILY [facility] Last Admin: 07/23/18 09:25 Dose: Not Given Ondansetron HCl (Zofran Inj*) 4 mg IV Q4H PRN PRN Reason: NAUSEA/VOMITING Pharmacy Profile Note (Nicotine Patch Removal Note*) 1 note PATCH OFF 2100 [facility] Last Admin: 07/22/18 20:30 Dose: Not Given Potassium Chloride (Klor Con Er Tab*) 20 meq PO DAILY [facility] Last Admin: 07/23/18 09:27 Dose: 20 meq Ramipril (Altace Cap*) 5 mg PO BEDTIME [facility] Senna (Senokot Tab*) 1 tab PO BID PRN PRN Reason: CONSTIPATION Thiamine HCl (Vitamin B-1 Tab*) 100 mg PO DAILY [facility] Last Admin: 07/23/18 09:27 Dose: 100 mg Vital Signs - 8 hr 07/23/18 07/23/18 07/23/18 03:34 04:00 05:00 Temperature 98.5 F Pulse Rate 55 67 Respiratory 50 10 23 Rate Blood Pressure 103/78 122/87 (mmHg) O2 Sat by Pulse 98 98 Oximetry 07/23/18 07/23/18 07/23/18 05:42 06:11 06:50 Temperature 98.0 F 98.0 F Pulse Rate 71 71 Respiratory 22 20 20 Rate Blood Pressure 123/81 123/81 (mmHg) O2 Sat by Pulse 100 100 Oximetry 07/23/18 07/23/18 08:00 10:18 Temperature 97.1 F Pulse Rate 74 Respiratory 18 18 Rate Blood Pressure 131/80 (mmHg) O2 Sat by Pulse 98 Oximetry Oxygen Devices in Use Now: None Appearance: 58 yo M in nAD, aAOx3 Eyes: No Scleral Icterus, PERRLA Ears/Nose/Mouth/Throat: NL Teeth, Lips, Gums, Mucous Membranes Moist Neck: NL Appearance and Movements; NL JVP Respiratory: Symmetrical Chest Expansion and Respiratory Effort, Clear to Auscultation Cardiovascular: NL Sounds; No Murmurs; No JVD Abdominal: NL Sounds; No Tenderness; No Distention Lymphatic: No Cervical Adenopathy Extremities: No Edema, No Clubbing, Cyanosis Skin: No Rash or Ulcers, No Nodules or Sclerosis Neurological: Alert and Oriented x 3, NL Muscle Strength and Tone Result Diagrams: 07/23/18 09:28 07/23/18 05:25 Microbiology and Other Data: Microbiology 07/21/18 21:00 Nasal Screen MRSA (PCR) - Final Nasal Mrsa Not Detected Assess/Plan/Problems-Billing Assessment: Mr Brownlee is a 58yo M with PMH of tobacco abuse, alcohol use, who presented to ED with c/o progressive dyspnea, found to be in Afib RVR. - Patient Problems (1) Atrial fibrillation with RVR Comment: - Cardiology consult appreciated, s/p EMELINA/caqrdioversion 07/22/18, now in NSR - Continue Heparin drip, then switvh to Xarelto or eliuquis-pt is considering which NOAC to be placed on (2) Elevated troponin level Comment: - No c/o chest pain, but EKG had diffuse ST-T changes in the setting of rapid Afib. - Troponin elevation can be secondary to Afib RVR, but will need ischemic w/u. - shasha ribeiro tomorrow - Continue Aspirin and Heparin drip. (3) Systolic CHF Comment: - Echo shows EF 15-20%, no mention of wall motion abnormalities. 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 - pt agrees to cath-poissibl=y tomorrow - cont ACEI and BB titration tolerated. - No signs of fluid overload at this time. (4) AURA (acute kidney injury) Comment: - Likely pre-renal in the setting of poor perfusion secondary to low EF and Afib RVR - improving. (5) Transaminitis Comment: - Likely multifactorial in the setting of alcohol use, systolic CHF with low EF, poor perfusion in the setting of Afib RVR. - US showed hepatosteatosis, no biliary pathology. - Hepatitis serologies are negative. - Continue to monitor. (6) DVT prophylaxis Comment: - Heparin drip till after cath (7) Full code status Status and Disposition: Inpatient.
--- NOTE | 2018-07-23 12:32 | CARD ---
ELECTRICAL CARDIOVERSION: DATE OF PROCEDURE: 07/22/18 - ROOM #44 PREPROCEDURE DIAGNOSIS: Atrial flutter alternating with atrial fibrillation. POSTPROCEDURE DIAGNOSIS: Atrial flutter alternating with atrial fibrillation. PROCEDURE: Electrical cardioversion. DESCRIPTION OF PROCEDURE: The indications, risks, and benefits of the procedure have been discussed with the patient and his . This is for a combined transesophageal and echo-guided cardioversion. The patient was amenable. The patient received sedation during the transesophageal echo and required an additional 1 mg of Versed after the EMELINA was completed. The patient had a time-out for both procedures. Following the transesophageal echo, AP patches were placed. Carotid sinus massage confirmed that he was in atrial flutter (not SVT), but also converted him to AFib. Using the AP patches, a 120 joules of energy was delivered across the chest wall with successful cardioversion. He initially had sinus asystole brief but consistent with slow sinus node recovery time, he then was in a junctional bradycardia and within an hour within sinus rhythm. CONCLUSION: Successful cardioversion from AFib/flutter to normal sinus rhythm with evidence of sick sinus syndrome. The patient was hemodynamically stable throughout the procedure including immediately after cardioversion. There were no complications other than the brief sinus pause as above. [id number]/[facility] #: [id number] [facility] HOSPITALHubert
[2018-07-23] MEDS: Heparin VIAL(*) 5000 UNITS/ML VIAL (FIVE THOUSAND) IV PRN (16:20)
[2018-07-23] MEDS: Heparin DRIP 25,000 UNITS(*) 25,000 UNITS/500 ML BAG IV SCH (16:21)
[2018-07-23] MEDS: Nicotine Patch Removal NOTE PATCH OFF SCH (19:43)
[2018-07-23] MEDS ORDERED: Ramipril CAP* 5 MG PO SCH (21:00)
[2018-07-24] MEDS ORDERED: Potassium Chlor TAB* 20 MEQ TAB.ER PO ONE (00:26)
[2018-07-24] MEDS ORDERED: NS 0.9% 1000 ML** 1,000 ML IV SCH ×2 (06:00→15:30)
[2018-07-24 06:44] LABS: ABS Eosinophils 0.2 10^3/ul (0-0.6); ABS Monocytes 0.5 10^3/ul (0-0.8); ABS Neutrophils 4.1 10^3/ul (1.5-7.7); Eosinophil % 2.2 %; Hematocrit 34 % (42-52); Hemoglobin 11.7 g/dL (14.0-18.0); Lymphocyte % 29.3 %; Mean Corpuscular HGB Conc 35 g/dL (31-36); Mean Corpuscular Hemoglobin 35 pg (27-31); Mean Corpuscular Volume 100 fL (80-94); Mean Platelet Volume 9.3 fL (7.4-10.4); Nucleated Red Blood Cells % 0.1; Platelet Count 132 10^3/uL (150-450); Red Blood Count 3.37 10^6 /uL (4.18-5.48); Red Cell Distribution Width 14 % (10-15); White Blood Count 6.7 10^3/uL (3.5-10.8)
[2018-07-24 07:00] LABS: Albumin 3.6 g/dL (3.2-5.2); Albumin/Globulin Ratio 1.2 (1-3); BUN/Creatinine Ratio 26.3 (8-20); Calcium 9.1 mg/dL (8.6-10.3); EGFR African American 80.4 (>60); EGFR Non-African American 66.4 (>60); Globulin 2.9 g/dL (2-4); Potassium 4.4 mmol/L (3.5-5.0); Total Bilirubin 0.6 mg/dL (0.2-1.0); Total Protein 6.5 g/dL (6.4-8.9)
[2018-07-24 07:07] LABS: Troponin I 0.39 ng/mL (<0.04)
[2018-07-24] MEDS: Nicotine PATCH 14 MG/24 HR* PATCH TRANSDERM SCH (08:28)
[2018-07-24] MEDS: Potassium Chlor TAB* 20 MEQ TAB.ER PO SCH (08:31)
[2018-07-24] MEDS: Thiamine TAB* 100 MG TAB PO SCH (08:31)
[2018-07-24] MEDS: Carvedilol TAB* 6.25 MG PO SCH ×2 (08:31→19:33)
[2018-07-24] MEDS: Multivitamins/Minerals TAB PO SCH (08:31)
[2018-07-24] MEDS: Aspirin 81 mg CHEW TAB* 81 MG TAB.CHEW PO SCH (08:31)
[2018-07-24] MEDS: Folic Acid TAB* 1 MG PO SCH (08:31)
--- NOTE | 2018-07-24 09:16 | PN ---
Subjective Date of Service: 07/24/18 Interval History: f/u CHF, atrial flutter maintained sinus rhythm asymptomatic sinus bradycardia on current BB dose 7 beat NSVT overnight Cr and LFt continue improvement Medications Active Medications: Acetaminophen (Tylenol Tab*) 650 mg PO Q4H PRN PRN Reason: PAIN Al Hydrox/Mg Hydrox/Simethicone (Maalox Plus*) 30 ml PO Q6H PRN PRN Reason: INDIGESTION Aspirin (Aspirin 81 Mg Chew Tab*) 81 mg PO DAILY [facility] Last Admin: 07/24/18 08:31 Dose: 81 mg Carvedilol (Coreg Tab*) 6.25 mg PO BID [facility] Last Admin: 07/24/18 08:31 Dose: 6.25 mg Docusate Sodium (Colace Cap*) 100 mg PO BID PRN PRN Reason: CONSTIPATION Folic Acid (Folvite Tab*) 1 mg PO DAILY [facility] Last Admin: 07/24/18 08:31 Dose: 1 mg Heparin Sodium (Porcine) (Heparin Vial(*)) 0 units IV .FOR BOLUSES PRN PRN Reason: HEPARIN DRIP BOLUSES Last Admin: 07/23/18 16:20 Dose: 7,050 units Heparin Sodium/Dextrose (Heparin Drip 25,000 Units(*)) 25,000 units in 500 mls @ 0 mls/hr IV PER RATE [facility]; Protocol Last Admin: 07/23/18 16:21 Dose: 26 mls/hr Sodium Chloride (Ns 0.9% 1000 Ml) 1,000 mls @ 100 mls/hr IV .per rate [facility] Multivitamins/Minerals (Theragran/Minerals Tab*) 1 tab PO DAILY [facility] Last Admin: 07/24/18 08:31 Dose: 1 tab Nicotine (Nicotine Patch 14 Mg/24 Hr*) 1 patch TRANSDERM DAILY [facility] Last Admin: 07/24/18 08:28 Dose: Not Given Ondansetron HCl (Zofran Inj*) 4 mg IV Q4H PRN PRN Reason: NAUSEA/VOMITING Pharmacy Profile Note (Nicotine Patch Removal Note*) 1 note PATCH OFF 2100 [facility] Last Admin: 07/23/18 19:43 Dose: Not Given Potassium Chloride (Klor Con Er Tab*) 20 meq PO DAILY [facility] Last Admin: 07/24/18 08:31 Dose: 20 meq Ramipril (Altace Cap*) 5 mg PO BEDTIME [facility] Last Admin: 07/23/18 19:49 Dose: 5 mg Senna (Senokot Tab*) 1 tab PO BID PRN PRN Reason: CONSTIPATION Thiamine HCl (Vitamin B-1 Tab*) 100 mg PO DAILY [facility] Last Admin: 07/24/18 08:31 Dose: 100 mg Objective Vital Signs: Temp Pulse Resp BP Pulse Ox 97.6 F 58 20 118/82 98 07/24/18 08:27 07/24/18 08:27 07/24/18 08:27 07/24/18 08:27 07/24/18 08:27 Oxygen Devices in Use Now: None Appearance: nad, pleasant Ears/Nose/Mouth/Throat: Clear Oropharnyx, Mucous Membranes Moist Neck: NL Appearance and Movements; NL JVP, Trachea Midline Respiratory: Symmetrical Chest Expansion and Respiratory Effort, Clear to Auscultation Cardiovascular: NL Sounds; No Murmurs; No JVD, RRR, No Edema Abdominal: - - soft, obese Extremities: No Edema Neurological: Alert and Oriented x 3 Laboratory Results: 07/24/18 06:30 07/24/18 06:30 INR (Anticoag Therapy) 1.50 (0.82-1.09) H 07/22/18 04:40 APTT 65.6 seconds (26.0-38.0) H 07/24/18 03:02 Total Bilirubin 0.60 mg/dL (0.2-1.0) 07/24/18 06:30 AST 112 U/L (13-39) H 07/24/18 06:30 ALT 331 U/L (7-52) H 07/24/18 06:30 Alkaline Phosphatase 84 U/L (34-104) 07/24/18 06:30 CK-MB (CK-2) 18.8 ng/mL (0.6-6.3) H 07/21/18 18:25 B-Natriuretic Peptide 389 pg/mL (<=100) H 07/24/18 06:30 Total Protein 6.5 g/dL (6.4-8.9) 07/24/18 06:30 Albumin 3.6 g/dL (3.2-5.2) 07/24/18 06:30 Globulin 2.9 g/dL (2-4) 07/24/18 06:30 Albumin/Globulin Ratio 1.2 (1-3) 07/24/18 06:30 Triglycerides 56 mg/dL 07/22/18 04:40 Cholesterol 109 mg/dL 07/22/18 04:40 LDL Cholesterol 70 mg/dL 07/22/18 04:40 HDL Cholesterol 27.5 mg/dL 07/22/18 04:40 TSH 2.88 mcIU/mL (0.34-5.60) 07/21/18 18:25 07/21/18 07/21/18 07/21/18 18:13 21:05 23:50 Troponin I 1.59 H* 1.89 H* 1.74 H* 07/24/18 06:30 Troponin I 0.39 H* mg 2.0 on 07/22/2018 Diagnostic Imaging: Transesophageal Echocardiogram Study Date: 07/22/2018 Conclusions Summary: 1. Left ventricle: Systolic function is severely reduced. The estimated ejection fraction is 15-20%. Global hypokinesis, minor variation. 2. Right ventricle: Systolic function is moderately reduced. 3. Left atrium: The atrium is severely dilated. There is no evidence of a thrombus in the atrial cavity or appendage. There is spontaneous echo contrast 4. Atrial septum: A PFO is demonstrated by color Doppler, with left to right shunting. 5. Mitral valve: There is mild regurgitation. EKG Data: ekg 07/21/2018 rate variable probable atrial flutter, rate uncontrolled ekg 07/22/18: typical atrial flutter 2:1 135 bpm ekg 07/23/2018 NSr 60 bpm, ivcd, diffuse repolarization abnormalities ekg today sb 50bpm, ivcd, anterolateral prominent repolarization Assessment/Plan 1. Low output systolic HF - Improved - Suspect significant component tachycardia induced 2. Rapid atrial flutter - s/p cardioversion - Not on amiodarone due to post-conversion junctional rhythm (s/p multiple rate control agents and asymptomatic sinus bradycardia). Suspect a degree of sinus node dysfunction as well 3. NSVT 4. Obesity 5. AURA and Ischemic/congestive hepatopathy - Improved 6. Elevated troponin - significant - suspicious for CAD in addition to #2 contributing to heart failure 7. Tobacco use 8. Alcohol use, ? excessive - continue aspirin - continue heparin gtt for now, NOAC pending angiogram - continue coreg to 6.25 mg po bid - continue ramipril to 5 mg po daily - Limited echo this AM - May benefit (pending clinical course and below) from outpatient atrial flutter ablation and continued medical management of any potential atrial fibrillation - Diagnostic coronary angiogram +/- revascularization later today - Further recommendations pending above Thank you for allowing me to participate in the cardiovascular care of this patient. Please do not hesitate to contact me with questions or concerns.
[2018-07-24] MEDS ORDERED: Perflutren Lipid Microsphere* 3 ML VIAL ONE (10:20)
--- NOTE | 2018-07-24 11:29 | ECHO ---
*[facility]* [place] [address] Fax #: [phone] Limited Transthoracic Echocardiogram Patient: Torrie Height: 72 in / Don Bose 182.9 cm : 1960 Weight: 257 lb / Study Date: 07/24/2018 116.8 kg Age: 58 BP: 128 / 85 Gender: M BMI/BSA: 34.9 kg/m^2 HR: 57 bpm / 2.48 m^2 *E Learning Specialist: * Shaila Womack RDCS RN *Referring Physician: * Chuy Chavez MD *Reading Physician: * Chuy Chavez MD Indications: Congestive Heart Failure. History: Atrial flutter. Risk factors: Former tobacco use. ETOH use. Conclusions Summary: Left ventricle: Systolic function is severely reduced. The LVEF is at least 25%. There is relatively severe hypokinesis of the entire inferior/inferolateral wall.n Compared to prior study from 07/22/2018, the LVEF has improved from < 20% with restorationist of sinus rhythm Study data: Transthoracic echocardiogram, limited study. Procedure: Transthoracic echocardiography was performed. Image quality was fair. The study was technically limited due to body habitus and smoking history. A total of 3 ml of Definity was administered IV by Karyn Womack RN. Patient status: Inpatient. Patient room number: 448-01. Rhythm: Bradycardia. Findings Left ventricle: Systolic function is severely reduced. The LVEF is at least 25%. There is relatively severe hypokinesis of the entire inferior/inferolateral wall.n Compared to prior study from 07/22/2018, the LVEF has improved from < 20% with restorationist of sinus rhythm Severe diffuse hypokinesis with regional variations. Prepared and electronically signed by Chuy Chavez MD 07/24/2018 11:29
[2018-07-24] MEDS: Heparin DRIP 25,000 UNITS(*) 25,000 UNITS/500 ML BAG IV SCH (11:52)
--- NOTE | 2018-07-24 13:43 | PN ---
Subjective Date of Service: 07/24/18 Interval History: Pt feels well, NPO awaiting cath Family History: Unchanged from Admission Social History: Unchanged from Admission Past Medical History: Unchanged from Admission Objective Active Medications: Acetaminophen (Tylenol Tab*) 650 mg PO Q4H PRN PRN Reason: PAIN Al Hydrox/Mg Hydrox/Simethicone (Maalox Plus*) 30 ml PO Q6H PRN PRN Reason: INDIGESTION Aspirin (Aspirin 81 Mg Chew Tab*) 81 mg PO DAILY [facility] Last Admin: 07/24/18 08:31 Dose: 81 mg Carvedilol (Coreg Tab*) 6.25 mg PO BID [facility] Last Admin: 07/24/18 08:31 Dose: 6.25 mg Docusate Sodium (Colace Cap*) 100 mg PO BID PRN PRN Reason: CONSTIPATION Folic Acid (Folvite Tab*) 1 mg PO DAILY [facility] Last Admin: 07/24/18 08:31 Dose: 1 mg Heparin Sodium (Porcine) (Heparin Vial(*)) 0 units IV .FOR BOLUSES PRN PRN Reason: HEPARIN DRIP BOLUSES Last Admin: 07/23/18 16:20 Dose: 7,050 units Sodium Chloride (Ns 0.9% 1000 Ml) 1,000 mls @ 100 mls/hr IV .per rate [facility] Last Admin: 07/24/18 12:29 Dose: 100 mls/hr Multivitamins/Minerals (Theragran/Minerals Tab*) 1 tab PO DAILY [facility] Last Admin: 07/24/18 08:31 Dose: 1 tab Nicotine (Nicotine Patch 14 Mg/24 Hr*) 1 patch TRANSDERM DAILY [facility] Last Admin: 07/24/18 08:28 Dose: Not Given Ondansetron HCl (Zofran Inj*) 4 mg IV Q4H PRN PRN Reason: NAUSEA/VOMITING Pharmacy Profile Note (Nicotine Patch Removal Note*) 1 note PATCH OFF 2100 [facility] Last Admin: 07/23/18 19:43 Dose: Not Given Ramipril (Altace Cap*) 5 mg PO BEDTIME [facility] Last Admin: 07/23/18 19:49 Dose: 5 mg Senna (Senokot Tab*) 1 tab PO BID PRN PRN Reason: CONSTIPATION Thiamine HCl (Vitamin B-1 Tab*) 100 mg PO DAILY [facility] Last Admin: 07/24/18 08:31 Dose: 100 mg Vital Signs - 8 hr 07/24/18 07/24/18 07/24/18 08:00 08:27 12:18 Temperature 97.6 F Pulse Rate 58 Respiratory 20 20 16 Rate Blood Pressure 118/82 (mmHg) O2 Sat by Pulse 98 Oximetry 07/24/18 12:35 Temperature 97.2 F Pulse Rate 66 Respiratory 20 Rate Blood Pressure 121/88 (mmHg) O2 Sat by Pulse 98 Oximetry Oxygen Devices in Use Now: None Appearance: 58 yo M in nAD, aAOx3 Eyes: No Scleral Icterus, PERRLA Ears/Nose/Mouth/Throat: NL Teeth, Lips, Gums, Mucous Membranes Moist Neck: NL Appearance and Movements; NL JVP, Trachea Midline Respiratory: Symmetrical Chest Expansion and Respiratory Effort, Clear to Auscultation Cardiovascular: NL Sounds; No Murmurs; No JVD, RRR Abdominal: NL Sounds; No Tenderness; No Distention Lymphatic: No Cervical Adenopathy Extremities: No Edema, No Clubbing, Cyanosis Skin: No Rash or Ulcers, No Nodules or Sclerosis Neurological: Alert and Oriented x 3, NL Muscle Strength and Tone Result Diagrams: 07/24/18 06:30 07/24/18 06:30 Microbiology and Other Data: Microbiology 07/21/18 21:00 Nasal Screen MRSA (PCR) - Final Nasal Mrsa Not Detected Assess/Plan/Problems-Billing Assessment: Mr Brownlee is a 58yo M with PMH of tobacco abuse, alcohol use, who presented to ED with c/o progressive dyspnea, found to be in Afib RVR. - Patient Problems (1) Atrial fibrillation with RVR Comment: - Cardiology consult appreciated, s/p EMELINA/caqrdioversion 07/22/18, now in NSR - Continue Heparin drip, then switvh to Xarelto or Eliquis-pt is considering which NOAC to be placed on (2) Elevated troponin level Comment: - No c/o chest pain, but EKG had diffuse ST-T changes in the setting of rapid Afib. - Troponin elevation can be secondary to Afib RVR, but will need ischemic w/u. - cath today - Continue Aspirin and Heparin drip. 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 - cath today - cont ACEI and BB titration tolerated. - No signs of fluid overload at this time. (4) AURA (acute kidney injury) Comment: - Likely pre-renal in the setting of poor perfusion secondary to low EF and Afib RVR - improving. (5) Transaminitis Comment: - Likely multifactorial in the setting of alcohol use, systolic CHF with low EF, poor perfusion in the setting of Afib RVR. - US showed hepatosteatosis, no biliary pathology. - Hepatitis serologies are negative. - Continue to monitor. (6) DVT prophylaxis Comment: - Heparin drip till after cath (7) Full code status Status and Disposition: Inpatient.
[2018-07-24] MEDS ORDERED: fentaNYL* 50 MCG/ML 2 ML VIAL (100 MCG VIAL) ONE (13:56)
[2018-07-24] MEDS ORDERED: VERAPAMIL 2.5 MG/ML 2 ML VIAL ** 5 mg/2 ml ONE (13:56)
[2018-07-24] MEDS ORDERED: Heparin(*) 1000 UNIT/ML 10 ML VIAL CATH LAB IV ONE (13:56)
[2018-07-24] MEDS ORDERED: Heparin 2 UNITS/ML IVPREMIX* 3,000 UNIT/1,500 ML BAG IV ONE (13:56)
[2018-07-24] MEDS ORDERED: Midazolam* 1 MG/ML 5 ML VIAL (5 MG) ONE (13:56)
[2018-07-24] MEDS ORDERED: Lidocaine 1% INJ* 10 MG/ML 30 ML SDV ONE (13:57)
[2018-07-24] MEDS ORDERED: Iodixanol 320 (CONTRAST) 100 ML SDV ONE (13:57)
[2018-07-24] MEDS ORDERED: nitroGLYCERIN DRIP* 25,000 MCG/250 ML BTL ONE (13:57)
--- NOTE | 2018-07-24 17:33 | PN ---
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
--- NOTE | 2018-07-24 17:46 | CATH ---
CC: Dr. Chavez * CATH REPORT: DATE OF PROCEDURE: 07/24/18 - ROOM #448 ENVIRONMENTAL MONITORING TECHNICIAN: Dr. Chavez. PRIMARY CARE PHYSICIAN: None. PROCEDURES: Right radial artery access, bilateral selective coronary cineangiography, left heart catheterization. HISTORY: A 58-year-old male presenting with atrial flutter, post cardioversion has improved, but is still persisting LV systolic dysfunction, was referred for coronary angiography. PROCEDURE ACCESS: Right radial artery sheath, 6-F slender. MEDICATIONS: 1. Subcu lidocaine. 2. IV Versed. 3. IV fentanyl. 4. Heparin 3000 units. 5. Verapamil 3 mg. 6. Nitroglycerin 300 mcg IA. DIAGNOSTIC CATHETER: 5F TIG4, 5 FL4. HEMODYNAMICS: Initial AO 118/84, LV post coronary angiography 112/25-40, no aortic valve gradient on pullback. ANGIOGRAPHY: RCA: The RCA is small, not dominant, has no stenosis. Left main: The left main is normal in size and length, has no stenosis. LAD: The LAD is large, extends past the apex and supplies the inferoapical segment, the LAD has scattered mild luminal irregularity, but no significant stenosis. The LAD supplies small to moderate first diagonal and a small second diagonal. Circumflex: The circumflex is large, dominant, with a large ramus branch which has luminal irregularity, but no significant stenosis, followed by a small marginal, moderate posterolateral, and ends with a moderate circumflex PDA. The circumflex has minor luminal irregularity, has no significant stenosis. LV gram: Not done because of reduced GFR. CONCLUSION: 1. No significant obstructive coronary artery disease. 2. Markedly elevated LVDP. 3. Successful right radial artery access. [id number]/[facility] #: [id number] [facility]
[2018-07-24] MEDS: Apixaban* 5 MG TAB PO SCH (19:33)
[2018-07-24] MEDS: Nicotine Patch Removal NOTE PATCH OFF SCH (19:34)
[2018-07-24] MEDS ORDERED: Ramipril CAP* 10 MG PO SCH (21:00)
[2018-07-25 05:44] LABS: BUN/Creatinine Ratio 22.5 (8-20); Calcium 8.8 mg/dL (8.6-10.3); EGFR African American 82.9 (>60); EGFR Non-African American 68.5 (>60); Potassium 4.4 mmol/L (3.5-5.0)
[2018-07-25] MEDS: Folic Acid TAB* 1 MG PO SCH (08:00)
[2018-07-25] MEDS: Thiamine TAB* 100 MG TAB PO SCH (08:01)
[2018-07-25] MEDS: Apixaban* 5 MG TAB PO SCH (08:01)
[2018-07-25] MEDS: Nicotine PATCH 14 MG/24 HR* PATCH TRANSDERM SCH (08:01)
[2018-07-25] MEDS: Multivitamins/Minerals TAB PO SCH (08:01)
[2018-07-25 11:23] VITALS: BP 121/70
[2018-07-25] MEDS: Carvedilol TAB* 6.25 MG PO SCH (11:36)
--- NOTE | 2018-07-25 15:18 | DS ---
CC: Dr. Velasquez; Dr. Barnard; Dr. Chavez; Dr. King DISCHARGE SUMMARY: DATE OF ADMISSION: 07/21/18 DATE OF DISCHARGE: To home, 07/25/18. PRIMARY CARE PROVIDER: None, although the patient is trying to get back to see Dr. Velasquez who he ochoa s seen many years ago. DISPOSITION AT DISCHARGE: The patient is discharged to home. CONDITION ON DISCHARGE: Stable. DISCHARGE DIAGNOSES: 1. Atrial fibrillation with rapid ventricular response. 2. 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 3. History of acute kidney injury that resolved, likely related to hypoperfusion due to atrial fibri llation with rapid ventricular response. 4. Elevation of liver function tests, likely due to hypoperfusion due to rapid atrial fibrillation. CONSULTATIONS DURING THE HOSPITAL STAY: Included Dr. Barnard and Dr. Chavez from Cardiology, as well as Dr. King from Interventional Cardiology. PROCEDURES PERFORMED: Included: 1. EMELINA cardioversion performed on 07/22/[address] Barnard. The patient was briefly in junctional rh ythm and then he was back in sinus. 2. Cardiac catheterization performed by Dr. King on 07/24/18, which showed conclusion: "No signif icant obstructive coronary artery disease. Markedly elevated left ventricular diastolic pressures. Successful right radial artery access." LABORATORY DATA AND STUDIES PERFORMED DURING THE HOSPITAL STAY: Included on 07/25/18, sodium of 138, potassium 4.4, chloride 112, carbon dioxide 19, BUN 25, creatinine 1.1. Liver function tests last obtained on 07/24/18 showed bili of 0.6, AST of 112, ALT of 331, alkaline p hosphatase of 84. CBC on 07/24/18: White blood cell count was 7, hemoglobin of 11.7, hematocrit of 34, MCV of 100, yolanda telets of 132. Hepatitis acute panel was negative for hepatitis A, B and C. Transthoracic echocardiogram obtained on 07/24/18 showed impression: "Left ventricular systolic func tion is severely reduced. The LVEF is at least 25%. There is relatively severe hypokinesis of the en tire inferior and inferolateral wall. Compared to prior study from 07/22/18, the LVEF has improved f rom 20% with taoist of sinus rhythm." V/Q scan of the lungs obtained on 07/22/18, impression: "No sonographic evidence of pulmonary emboli sm. Negative exam." Abdomen ultrasound, 07/22/18, impression: "Hepatosteatosis. Negative for gallbladder pathology. Ne gative for ascites at the right upper quadrant. 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 The patient was noted to have an atrial fibrillation with rapid ventricular response. The patient's troponins peaked at 1.89 . His EF was noted to be initially lower than 20% and ischemic cardiac disease was suspected. Initi ally, the patient was placed on medical treatment for his atrial fibrillation, but did not tolerate i t and Dr. Barnard performed a EMELINA cardioversion on 07/22/18. Transiently, the patient was in junctio nal rhythm, but later on he continued to be in sinus bradycardia and he continues to remain in sinus bradycardia throughout his hospital stay. Throughout the remaining part of his hospital stay, the leigh ann thornton was placed on DOV inhibitor, low-dose of beta- my and monitored. On 07/24/18, Dr. King performed cardiac catheterization that showed no significant obstructive coronary artery disease. At this point, the patient was noted to have nonischemic cardiomyopathy likely related to tachycardia, but the patient also has history of drinking beer on a daily basis and alcohol could have played a ro le. After his cardiac catheterization, the patient did well and he was recommended by Dr. Chavez to continue his DOV inhibitor, beta-my and to follow up with Cardiology. The patient was hepariniz ed throughout his hospital stay and after cardiac catheterization placed on Eliquis for anticoagulati on. Please also note that the patient had acute kidney injury at admission with a creatinine at its maxim um at 1.9 likely due to hypoperfusion to rapid atrial fibrillation and that resolved by the time of d ischarge with creatinine down to 1.1 at discharge. The patient's LFTs were also elevated likely rela anette to hypoperfusion and they have been improving throughout his hospital stay. DISCHARGE INSTRUCTIONS: At discharge, the patient is recommended to follow up with Dr. Chavez as men tioned above. The patient is also recommended to follow up with primary care provider of his choosing, which is Dr. Velasquez, but if he is unable to do that within the next week due to that he has not seen Dr. Velasquez for many years, he is asked to call our [facility] and schedule an appointment. Specific post cardiac catheterization discharge instructions were given to the patient in writing. DISCHARGE MEDICATIONS: Please note that the patient had significant bradycardia on Coreg at 6.25 mg b.i.d. and his Coreg dose was lowered to 3.125 mg b.i.d. at discharge. The remaining medications include: 1. Apixaban 5 mg b.i.d. 2. Folic acid 1 mg daily. 3. Ramipril 10 mg at bedtime. 4. Thiamine 100 mg daily. PHYSICAL EXAMINATION: At the time of discharge, blood pressure of 121/70, heart rate of 59 and regul ar, respiratory rate 16, oxygen saturation 98% on room air, temperature 98.3. General: The patient is a pleasant 58-year-old male, who is in no acute distress. Alert, awake, and oriented x3. HEENT: Head: Atraumatic, normocephalic. Eyes: Pupils are equal, reactive to light and accommodation. Sera pharynx is clear. Mucosa moist. Neck: Supple. No JVD. No bruits bilaterally. Cardiovascular: R egular rate and rhythm. No murmur. Respiratory: Clear to auscultation bilaterally. Abdomen: Soft, nontender. Bowel sounds are present in all 4 quadrants. Extremities: There is no edema. Pulses a re +2 bilaterally. No clubbing or cyanosis. On neuro evaluation, speech is clear. Cranial nerves II through XII are grossly intact. Motor strength is 5/5 bilaterally. CONDITION AT DISCHARGE: Stable. DISPOSITION AT DISCHARGE: To home. Please note that this is a short summary of the patient's hospital stay. Please refer to further [facility] records for details. TIME SPENT: Approximately 40 minutes was spent on the patient's discharge. [id number]/[facility] #: [id number]
== END 2018-07-25 13:32 | disposition home or self-care (01) | DRG 192 ==
LOC: ED 17:36 → ICU 19:56 → MEDTELE 07-23 06:22
PROVIDERS: ADMIT Pediatrics; ATTEND Internal Medicine
PROC: 5A2204Z Restoration of Cardiac Rhythm, Single (ICD-10-PCS; 2018-07-22)
PROC: B24BZZ4 Ultrasonography of Heart with Aorta, Transesophageal (ICD-10-PCS; principal; 2018-07-22 13:00)
PROC: B2111ZZ Fluoroscopy of Multiple Coronary Arteries using Low Osmolar Contrast (ICD-10-PCS; 2018-07-24)
PROC: 4A023N7 Measurement of Cardiac Sampling and Pressure, Left Heart, Percutaneous Approach (ICD-10-PCS; 2018-07-24)
DX: I48.91 Unspecified atrial fibrillation (principal); N17.9 Acute kidney failure, unspecified; I50.20 Unspecified systolic (congestive) heart failure; Q21.1 Atrial septal defect; F17.210 Nicotine dependence, cigarettes, uncomplicated; R74.0 Nonspecific elevation of levels of transaminase and lactic acid dehydrogenase [LDH]; I42.8 Other cardiomyopathies; I48.92 Unspecified atrial flutter; I08.1 Rheumatic disorders of both mitral and tricuspid valves; E66.9 Obesity, unspecified; I47.1 Supraventricular tachycardia; K76.0 Fatty (change of) liver, not elsewhere classified; I42.6 Alcoholic cardiomyopathy; Z91.09 Other allergy status, other than to drugs and biological substances; Z72.89 Other problems related to lifestyle; Z80.1 Family history of malignant neoplasm of trachea, bronchus and lung; Z68.36 Body mass index [BMI] 36.0-36.9, adult; Z79.01 Long term (current) use of anticoagulants
CPT/HCPCS: 36415; 71045; 71046; 76705; 78582; 80048; 80053; 80061; 80074; 80320; 81003; 82550; 82553; 82570; 82607; 82746; 83036; 83605; 83735; 83880; 84300; 84436; 84443; 84484; 85025; 85610; 85730; 87641; 92960; 93005; 93306; 93308; 93312; 93325; 93454; 99156; 99157; 99285; A9270-GY; A9540; A9558; C8924; C8929; G0480; J1160; J1644; J1940; J2250; J2310; J3010; J3475; J3490

== ENCOUNTER 2022-11-28 07:28 | Inpatient (IN) ==
[2022-11-28] MEDS ORDERED: Metoprolol Tartrate 5 mg VIAL 5 ml VIAL (1 mg/ml) IV ONE (07:54)
[2022-11-28 08:16] LABS: ABS Eosinophils 0.1 10^3/uL (0.0-0.5); ABS Lymphocytes 1.7 10^3/uL (1.0-4.8); ABS Monocytes 0.5 10^3/uL (0.0-1.1); ABS Neutrophils 4.9 10^3/uL (1.5-7.6); ABS Nucleated RBC 0.01 10^3/ul; Eosinophil % 1.1 %; Hematocrit 38.3 % (38-53); Hemoglobin 13.3 g/dL (13.2-16.3); Lymphocyte % 24.1 %; Mean Corpuscular Hemoglobin 34.5 pg (27-33); Mean Corpuscular Hgb Conc 34.8 g/dL (31-36); Mean Corpuscular Volume 99.3 fL (80-97); Mean Platelet Volume 9.4 fL (7.5-11.2); Nucleated Red Blood Cells % 0.1 %/100WBC (0.0-0.8); Platelet Count 120 10^3/uL (150-450); Red Blood Count 3.86 10^6/uL (4.06-5.63); Red Cell Distribution Width 13.6 % (12-17); White Blood Count 7.2 10^3/uL (3.6-10.2)
[2022-11-28] MEDS ORDERED: NS 0.9% 1000 ml BAG 1,000 ML IV ONE (08:37)
[2022-11-28 08:41] LABS: Albumin 4.3 g/dL (3.2-5.2); Calcium 9.2 mg/dL (8.6-10.3); Magnesium 1.8 mg/dL (1.9-2.7); Total Bilirubin 0.9 mg/dL (0.2-1.0)
[2022-11-28] MEDS ORDERED: Magnesium Sulfate IV 1GM/100ML 1 GM/100 ML BAG IV ONE (08:42)
[2022-11-28 08:47] LABS: Albumin/Globulin Ratio 1.7 (1-3); Creatinine, Serum 1.13 mg/dL (0.67-1.17); Globulin 2.6 g/dL (2-4); Total Protein 6.9 g/dL (6.4-8.9); eGFR CKD-EPI 74.4 (>60)
[2022-11-28] MEDS ORDERED: Iohexol 350 (CONTRAST) 500 ML MDV IV ONE (09:08)
[2022-11-28 09:56] LABS: High Sensitivity Troponin 1 Hr 22 pg/mL (<20)
[2022-11-28] MEDS ORDERED: Furosemide 40 mg/4 ml IV VIAL IV ONE (11:08)
[2022-11-28] MEDS ORDERED: Digoxin IV 0.5 MG/2 ML AMP (0.25 MG/ML) IV SLOW PU ONE (11:09)
[2022-11-28] MEDS ORDERED: Midazolam 5 mg/5 ml VIAL 1 mg/ml 5 ml VIAL (5 mg) ONE (15:28)
[2022-11-28] MEDS ORDERED: fentaNYL 100 mcg/2 ml 50 MCG/ML VIAL ONE (15:28)
[2022-11-28] MEDS ORDERED: Naloxone 0.4 mg VIAL 0.4 mg/ml 1 ml VIAL ONE (15:29)
[2022-11-28] MEDS ORDERED: Flumazenil 0.5 mg/5 ml 0.1 MG/ML 5 ml VIAL ONE (15:29)
[2022-11-28] MEDS ORDERED: Flumazenil 0.5 mg/5 ml 0.1 MG/ML 5 ml VIAL IV PRN (16:02)
[2022-11-28] MEDS ORDERED: Midazolam 10 mg/10 ml VIAL 1 mg/ml 10 ml VIAL (10 mg) IV SLOW PU ONE (16:02)
[2022-11-28] MEDS ORDERED: Naloxone 0.4 mg VIAL 0.4 mg/ml 1 ml VIAL IV PUSH PRN (16:02)
[2022-11-28] MEDS ORDERED: fentaNYL 100 mcg/2 ml 50 MCG/ML VIAL IV SLOW PU ONE (16:02)
[2022-11-28] MEDS: Amiodarone 400 mg TAB PO SCH (18:51)
[2022-11-29 08:13] LABS: ABS Eosinophils 0.1 10^3/uL (0.0-0.5); ABS Lymphocytes 1.4 10^3/uL (1.0-4.8); ABS Monocytes 0.4 10^3/uL (0.0-1.1); ABS Neutrophils 3.7 10^3/uL (1.5-7.6); ABS Nucleated RBC 0.01 10^3/ul; Eosinophil % 1.6 %; Hematocrit 35.9 % (38-53); Hemoglobin 12.5 g/dL (13.2-16.3); Lymphocyte % 24.5 %; Mean Corpuscular Hemoglobin 34.8 pg (27-33); Mean Corpuscular Volume 99.6 fL (80-97); Mean Platelet Volume 9.1 fL (7.5-11.2); Nucleated Red Blood Cells % 0.2 %/100WBC (0.0-0.8); Platelet Count 108 10^3/uL (150-450); Red Cell Distribution Width 13.6 % (12-17); White Blood Count 5.6 10^3/uL (3.6-10.2)
[2022-11-29 08:32] LABS: Calcium 8.8 mg/dL (8.6-10.3); Creatinine, Serum 1.13 mg/dL (0.67-1.17); eGFR CKD-EPI 74.4 (>60)
[2022-11-29] MEDS: Amiodarone 400 mg TAB PO SCH ×2 (09:31→20:45)
[2022-11-30 09:28] LABS: ABS Eosinophils 0.1 10^3/uL (0.0-0.5); ABS Lymphocytes 1.5 10^3/uL (1.0-4.8); ABS Monocytes 0.3 10^3/uL (0.0-1.1); ABS Neutrophils 3.5 10^3/uL (1.5-7.6); Eosinophil % 2.5 %; Hematocrit 37.2 % (38-53); Hemoglobin 12.9 g/dL (13.2-16.3); Lymphocyte % 27.1 %; Mean Corpuscular Hemoglobin 34.8 pg (27-33); Mean Corpuscular Hgb Conc 34.6 g/dL (31-36); Mean Corpuscular Volume 100.4 fL (80-97); Platelet Count 107 10^3/uL (150-450); Red Blood Count 3.71 10^6/uL (4.06-5.63); Red Cell Distribution Width 13.2 % (12-17); White Blood Count 5.4 10^3/uL (3.6-10.2)
[2022-11-30 09:50] LABS: Calcium 8.7 mg/dL (8.6-10.3); Creatinine, Serum 1.02 mg/dL (0.67-1.17); Potassium 3.8 mmol/L (3.5-5.0); eGFR CKD-EPI 84.1 (>60)
[2022-11-30] MEDS: Amiodarone 400 mg TAB PO SCH (10:10)
[2022-11-30 11:32] VITALS: BP 105/68
== END 2022-11-30 13:00 | disposition home or self-care (01) | DRG 201 ==
LOC: ED 07:28 → EDHOLD 09:23 → MEDTELE 23:26
PROVIDERS: ADMIT Hospitalist; ATTEND Hospitalist